=== PATIENT | female | born 1965 | race African-American/Black ===

== ENCOUNTER 2020-12-27 11:05 | Outpatient (REF) | payer OTHER, SELFPAY ==
[2020-12-27 14:24] LABS: Estimated Average Glucose 148 mg/dL; Hemoglobin A1c % 6.8 %
[2020-12-27 14:28] LABS: Glucose Urine UA NEG (NEG); Leukocyte Esterase Urine 1+ (NEG); Nitrite Urine NEG (NEG); PH 5.5 (5.0-8.0); Specific Gravity - Urine >= 1.030 (1.005-1.025); Urine Blood NEG (NEG); Urine Ketones NEG (NEG); Urine Protein NEG (NEG-TRACE)
[2020-12-27 14:31] LABS: Alanine Aminotransferase 24 U/L (0-31); Albumin Level 4.1 g/dL (3.5-5.0); Alkaline Phosphatase 93 U/L (39-117); Anion Gap 10 (12-20); Aspartate Amino Transferase 26 U/L (5-31); Bilirubin Total 0.4 mg/dL (0.0-1.0); Blood Urea Nitrogen 11 mg/dL (9-16); Calcium 8.8 mg/dL (8.4-10.2); Carbon Dioxide 30 mmol/L (22-29); Chloride 107 mmol/L (96-108); Cholesterol 161 mg/dL; Estimated Glomerular Filt Rate > 60; Glucose Fasting 92 mg/dL (60-99); HDL Cholesterol 52 mg/dL; LDL Cholesterol Calculated 98 mg/dl; Potassium 5.3 mmol/L (3.3-5.1); Sodium 142 mmol/L (135-145); Total Protein 7.1 g/dL (6.5-8.0); Triglycerides 56 mg/dL
[2020-12-27 14:34] LABS: Creatinine Urine 219.37 mg/dL; Microalbum/Creatinine Ratio Ur 5.9 ug/mg cr
[2020-12-27 14:42] LABS: Appearance Urine CLOUDY; Color Urine YELLOW
[2020-12-27 15:07] LABS: Bacteria Urine 2+ /LPF; Mucus Urine 2+ /LPF; Squamous Epithelial Cell Urine 2+ /LPF
== END 2020-12-27 11:06 | disposition home or self-care (01) ==
LOC: HO.HMGCLDS 11:05
PROVIDERS: PCP Internal Medicine; Visit Provider Internal Medicine
DX: I10 Essential (primary) hypertension (principal); E11.9 Type 2 diabetes mellitus without complications; J45.909 Unspecified asthma, uncomplicated; R10.9 Unspecified abdominal pain
CPT/HCPCS: 36415; 80053; 80061; 81001; 82043; 83036

== ENCOUNTER 2021-01-09 07:45 | Outpatient (REF) | payer OTHER, SELFPAY ==
--- NOTE | ~2021-01-09 | US_ITS ---
EXAMINATION: US ABDOMEN COMPLETE CLINICAL INFORMATION: Unspecified abdominal pain. COMPARISON: None TECHNIQUE: Real-time imaging of the abdominal viscera. FINDINGS: PANCREAS: Normal. ABDOMINAL AORTA: The proximal, mid, and distal segments are normal in caliber. INFERIOR VENA CAVA: Visualized portions are normal. LIVER: The liver is normal in size. The liver contour is normal. There is diffuse increased liver echogenicity. No focal hepatic lesion. There is no intrahepatic biliary duct dilatation seen. GALLBLADDER: Normal. The gallbladder is physiologically distended without evidence of stones, sludge, polyps, wall thickening or pericholecystic fluid. COMMON BILE DUCT: Normal in caliber measuring 0.33 cm in diameter. RIGHT KIDNEY: Normal. No hydronephrosis. No renal calculi or focal parenchymal lesions. The kidney measures 10.6 cm in maximum dimension. LEFT KIDNEY: Normal. No hydronephrosis. No renal calculi or focal parenchymal lesions. The kidney measures 9.5 cm in maximum dimension. SPLEEN: Normal. The spleen measures 8.3 cm in maximum dimension. FREE FLUID: None. US/US abdomen complete IMPRESSION: Diffuse hepatic steatosis. No focal lesion seen.
== END 2021-01-09 07:46 | disposition home or self-care (01) ==
LOC: HO.US 07:45
PROVIDERS: PCP Internal Medicine; Visit Provider Internal Medicine
DX: R10.9 Unspecified abdominal pain (principal); E11.9 Type 2 diabetes mellitus without complications; I10 Essential (primary) hypertension; J45.909 Unspecified asthma, uncomplicated
CPT/HCPCS: 76700

== ENCOUNTER 2021-01-15 12:23 | Observation (INO) | payer OTHER, SELFPAY ==
[2021-01-15] VITALS (7 sets, daily range): BP systolic 115–139; BP diastolic 55–84; PULSE 73–95; RESP 15–16; TEMP 36.9; O2SAT 96–99; BMI 28.8
--- NOTE | ~2021-01-15 | XR_ITS ---
EXAMINATION: XR CHEST CLINICAL INFORMATION: Chest pain. Hemoptysis. COMPARISON: None TECHNIQUE: Frontal view of the chest was obtained. FINDINGS: The lungs are clear. The cardiomediastinal silhouette is normal in size. There is no pleural effusion or pneumothorax. No acute osseous abnormality. XR/XR chest 1V IMPRESSION: No acute cardiopulmonary findings.
--- NOTE | ~2021-01-15 | CT_ITS ---
EXAMINATION: CT ANGIOGRAM HEAD CT ANGIOGRAM NECK CLINICAL INFORMATION: Left-sided weakness. Confusion. Off balance. COMPARISON: None available. TECHNIQUE: Initial noncontrast field technical assistant imaging of the head and neck was performed. Noncontrast head CT was also performed. Test bolus sequences followed by intravenous administration 100 mL of Omnipaque 350. Helical imaging was performed in the axial plane from the aortic arch to the skull vertex. Delayed postcontrast imaging of the head was also performed. The data was processed at the manufacturing technologist's workstation for generation of MIP sequences. Angled MIPs and volume rendered reformatted images were also generated at an offline 3D workstation. Stenoses are assessed in accordance with NASCET criteria unless otherwise indicated. This CT examination was performed using dose optimization techniques as appropriate, variously including the following: *Automated exposure control. *Adjustment of mA and/or kV according to patient size (this includes techniques or standardized protocols for targeted exams where dose is matched to indication/reason for exam; i.e. extremities or head). *Use of iterative reconstruction technique. DLP: 3068 mGy-cm FINDINGS: CT Head: There is no evidence of acute intracranial hemorrhage or edematous territorial infarction. There is no abnormal attenuation within the brain parenchyma. Lang-white matter differentiation is preserved. The ventricles are normal in size and configuration. No evidence for obstructive hydrocephalus. No abnormal mass effect or midline shift. No extra-axial fluid collections. No pathologic intra-axial enhancement or regional oligemia. No acute soft tissue or osseous abnormalities. Mild mucosal thickening of the paranasal sinuses. The mastoid air cells and middle ear cavities are clear. CT Neck: The thyroid gland and remaining cervical soft tissues are within normal limits. Instrumented anterior fusion of C3-C6. No evidence of hardware failure. Anterior bridging osteophytosis of C2-C3 and C6-C7. 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 Associated moderate narrowing of the foramen magnum. The spinal canal is also congenitally narrowed from C2-C7. CT Upper Chest: The visualized lung apices and upper mediastinum are within normal limits. Neck CTA: Aortic Arch: Normal contour and caliber. Two vessel branching pattern of the arch with left common carotid artery arising from the brachiocephalic trunk. Great Vessel Origins: No significant stenosis of the branch origins. Right Common Carotid Artery: Normal opacification without focal stenosis or occlusion. Cervical Right Internal Carotid Artery: Normal opacification without focal stenosis or occlusion. Left Common Carotid Artery: Normal opacification without focal stenosis or occlusion. Cervical Left Internal Carotid Artery: Normal opacification without focal stenosis or occlusion. Cervical Right Vertebral Artery: Co-dominant. Normal opacification without focal stenosis or occlusion. Cervical Left Vertebral Artery: Co-dominant. Normal opacification without focal stenosis or occlusion. Brain CTA: Intracranial Internal Carotid Arteries: Normal contrast opacification of the petrous, cavernous, paraophthalmic, and supraclinoid segments of the internal carotid arteries without focal stenosis. Right Anterior Cerebral Artery: Normal A1 segment. Normal opacification of the distal segments of the [place]. Left Anterior Cerebral Artery: Normal A1 segment. Normal opacification of the distal segments of the [place]. Anterior Communicating Artery: Normal. Right Middle Cerebral Artery: Normal opacification of the M1 segment of the MCA without focal stenosis or occlusion. Normal arborization of the distal segments. Left Middle Cerebral Artery: Normal opacification of the M1 segment of the MCA without focal stenosis or occlusion. Normal arborization of the distal segments. Right Vertebral Artery: Normal opacification of the V4 segment. The posterior inferior cerebellar artery is not well opacified; however, there is no CT evidence of acute occlusion. Left Vertebral Artery: Normal opacification of the V4 segment. The posterior inferior cerebellar artery is not well opacified; however, there is no CT evidence of acute occlusion. Basilar Artery: Normal opacification without focal stenosis or occlusion. Normal appearance of the proximal superior cerebellar arteries. Right Posterior Cerebral Artery: Normal P1 segment. Normal opacification of the distal segments of the BOARD ATTENDANT. Left Posterior Cerebral Artery: Normal P1 segment. Normal opacification of the distal segments of the BOARD ATTENDANT. Normal opacification of the superior sagittal, straight, transverse, and sigmoid sinuses. CT/CT angio head neck IMPRESSION: 1. No evidence of acute intracranial hemorrhage or edematous territorial infarction. 2. CTA of the head and neck without proximal occlusion or flow-limiting stenosis. 3. Instrumented anterior fusion of C2-C6. 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 This critical result was discussed with JOCELYN Simpson at 17:43 on 01/15/2021 and it was ascertained that the content and urgency of the report was understood at the time of direct communication.
--- NOTE | ~2021-01-15 | CT_ITS ---
EXAMINATION: CT ANGIOGRAM CHEST CLINICAL INFORMATION: Left-sided weakness, confusion, tremulous, off balance. Assess for thoracic dissection. COMPARISON: Chest radiograph 01/15/2021. TECHNIQUE: Multiple axial images were obtained through the chest after the administration of 100 mL of Omnipaque 350 intravenous contrast. Extensive vascular post-processing including two-dimensional and three-dimensional reformatted images were created and reviewed on an independent workstation. CTA chest head and neck is also performed, described in separate report This CT examination was performed using dose optimization techniques as appropriate, variously including the following: *Automated exposure control *Adjustment of mA and/or kV according to patient size (this includes techniques or standardized protocols for targeted exams where dose is matched to indication/reason for exam; i.e. extremities or head) *Use of iterative reconstruction technique DLP: 497 mGy-cm FINDINGS: LUNGS: There are low lung volumes. There is no pneumothorax, lobar or segmental airspace consolidation, or geographic groundglass opacities. No mass. MEDIASTINUM: The thoracic aorta is normal in caliber. There is no aneurysmal enlargement or dissection. No thoracic wall thickening. 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 No pericardial effusion. No hilar or mediastinal mass or mediastinal hematoma. PLEURA: There is no pleural effusion. No pleural mass or thickening. AXILLA: No lymphadenopathy. UPPER ABDOMEN: Unremarkable OSSEOUS STRUCTURES: Unremarkable. CT/CT angio chest IMPRESSION: 1. No thoracic aortic enlargement or dissection. 2. No pneumothorax, airspace consolidation, or effusion. 3. CTA head neck described in separate report.
--- NOTE | 2021-01-15 12:48 | PC.NURSE ---
pt ambulatory with steady gait and one stand by assist to bathroom, void.
--- NOTE | 2021-01-15 12:59 | ECG_ITS ---
Test Reason : CHEST PAIN Blood Pressure : / mmHG Vent. Rate : 077 BPM Atrial Rate : 077 BPM P-R Int : 146 ms QRS Dur : 078 ms QT Int : 392 ms P-R-T Axes : 036 002 -19 degrees QTc Int : 443 ms Normal sinus rhythm with sinus arrhythmia Nonspecific T wave abnormality Abnormal ECG No previous ECGs available Referred By: Swapna Arzate Electronically Signed By:Alexsander Guerrero
[2021-01-15 13:59] LABS: Basophils Absolute Auto 0.1 X10*3/uL (0.0-0.2); Basophils Percent Auto 0.9 % (0-2); Eosinophils Absolute Auto 0.1 X10*3/uL (0.0-0.4); Eosinophils Percent Auto 2.2 % (0-4); Hematocrit 38.7 % (37-47); Hemoglobin 13.3 g/dl (12.0-16.0); Imm Gran Abs Auto 0.01 X10*3/uL (0.00-0.03); Imm Gran Pct Auto 0.2 % (0.0-0.4); Lymphocytes Absolute Auto 3.8 X10*3/uL (1.2-4.9); Lymphocytes Percent Auto 65.3 % (20-40); MANUAL DIFF FLAG SCAN; Mean Corpuscular HGB Conc 34.4 g/dl (31.0-35.0); Mean Corpuscular Hemoglobin 26.3 pg (27.0-33.0); Mean Corpuscular Volume 76.6 fL (80-98); Mean Platelet Volume 9.1 fL (9.4-12.3); Monocytes Absolute Auto 0.4 X10*3/uL (0.1-1.2); Monocytes Percent Auto 6.5 % (2-11); Neutrophils Absolute Auto 1.5 X10*3/uL (2.0-8.3); Neutrophils Percent Auto 24.9 % (45-73); Platelet Count 230 X10*3/uL (160-400); Red Blood Count 5.05 X10*6/uL (4.20-5.50); Red Cell Distribution Width 15.1 % (11.0-16.0); SCAN SMEAR FLAG 1; White Blood Count 5.8 X10*3/uL (4.8-10.8)
--- NOTE | 2021-01-15 14:19 | ED_ITS ---
HPI - Chest Pain General Chief Complaint: Chest Pain <JOCELYN Simpson - Last Filed: 01/15/21 18:06> Stated Complaint: DIFF BREATHING ON/OFF SINCE THURSDAY <JOCELYN Simpson - Last Filed: 01/15/21 18:06> Time Seen by Provider: 01/15/21 12:36 <JOCELYN Simpson - Last Filed: 01/15/21 18:06> Source: patient and EMS <JOCELYN Simpson - Last Filed: 01/15/21 18:06> Mode of arrival: EMS <JOCELYN Simpson - Last Filed: 01/15/21 18:06> History of Present Illness HPI narrative: 55-year-old female with a past medical history of diabetes, hypertension, asthma, hyperlipidemia, BIBA from urgent care complaining of substernal chest pain radiating to back, SOB, cough with hemoptysis x3 days. Also reports left- sided weakness with headache, increased confusion, and feeling off balance x 2-3 days. Per UC patient with ataxic gait, chills, abdominal pain, nausea/vomiting, dysuria/hematuria, fall/head trauma. Admits this is not her baseline. Takes ASA, denies other anticoagulation <JOCELYN Simpson - Last Filed: 01/15/21 18:06> Related Data Home Medications: Home Medications Medication Instructions Recorded Confirmed acetaminophen 650 mg PO TID PRN 01/15/21 01/22/21 albuterol sulfate 1 amp INHALATION Q4H PRN 01/15/21 01/22/21 bupropion HCl 150 mg 24 hr tablet, 150 mg PO QAM 01/15/21 01/22/21 extended release empagliflozin 10 mg tablet 10 mg PO DAILY@0730 01/15/21 01/22/21 inhalational spacing device #1 ea 01/15/21 01/22/21 Previous Rx's Medication Instructions Recorded lancets 28 gauge #100 ea 07/24/20 blood sugar diagnostic #100 ea 07/30/20 aspirin 81 mg tablet,delayed 81 mg PO DAILY #90 tab 11/29/20 release albuterol sulfate 90 mcg/actuation 2 puff PO QID PRN #8.5 g 12/19/20 aerosol inhaler amlodipine 10 mg tablet 10 mg PO DAILY #90 tab 12/19/20 atorvastatin 40 mg tablet 40 mg PO DAILY #90 tab 12/19/20 budesonide-formoterol HFA 80 2 puff PO BID #10.2 g 12/19/20 mcg-4.5 mcg/actuation aerosol inhaler lisinopril 2.5 mg tablet 2.5 mg PO DAILY #90 tab 12/19/20 metformin 1,000 mg tablet 1,000 mg PO BID #180 tab 12/19/20 metoprolol succinate 25 mg 25 mg PO DAILY #90 tab 12/19/20 tablet,extended release 24 hr compr.stocking,knee,long,large #12 ea 01/22/21 miscellaneous medical supply 1 ea MISCELLANEOUS .qd #1 ea 01/22/21 <JOCELYN Simpson Last Filed: 01/15/21 18:06> Allergies/Adverse Reactions: Allergies Allergy/AdvReac Type Severity Reaction Status Date / Time No Known Allergies Allergy Verified 01/22/21 13:42 <JOECLYN Simpson Last Filed: 01/15/21 18:06> Review of Systems Review of Systems: Constitutional: No Fever, No Chills, No Night Sweats, + Fatigue, + Malaise ENT/Mouth: No Ear Pain, No Nasal Congestion, No Sinus Pain, No Hoarseness, No sore throat, No Rhinorrhea Eyes: No Eye Pain, No Swelling, No Redness, No Vision Changes Cardiovascular: + Chest Pain, + SOB, + hemoptysis, No Edema, + Palpitations Respiratory: + Cough, No Sputum, No Dyspnea Gastrointestinal: No Nausea, No Vomiting, No Diarrhea, No Constipation, No Abdominal pain Genitourinary: No Dysuria, No Urinary Frequency, No Hematuria, No Flank Pain Musculoskeletal: No joint pain, No Myalgias, No Joint Swelling Skin: No Skin Lesions, No rash Neuro: + Weakness, +confusion, No Numbness, No Paresthesias, No Loss of Consciousness, + off balance, + Headache <JOCELYN Simpson Last Filed: 01/15/21 18:06> Yes all other systems are reviewed and are negative <JOCELYN Simpson Last Filed: 01/15/21 18:06> Neurologic: Reports confusion <JOCELYN Simpson Last Filed: 01/15/21 18:06> Psychiatric: Psychiatric: Reports confusion <JOCELYN Simpson - Last Filed: 01/15/21 18:06> [facility] Past Medical History Attestation statement: The following information was validated with the patient. <JOCELYN Simpson - Last Filed: 01/15/21 18:06> Medical History: Medical History Abdominal pain Dysuria H/O mixed hyperlipidemia Hypertension Ingrown toenail Moderate asthma without complication Type 2 diabetes mellitus <JOCELYN Simpson - Last Filed: 01/15/21 18:06> Surgical History: Surgical History H/O colonoscopy History of lumbosacral spine surgery Hx of cervical spine surgery <JOCELYN Simpson - Last Filed: 01/15/21 18:06> Social History Social History: Social History Household Members: Family Housing: House Alcohol intake: unknown Smoking Status: Never smoker service: No Current occupational status: employed <JOCELYN Simpson - Last Filed: 01/15/21 18:06> Physical Exam Vital Signs: Vital Signs: Last Vital Signs Temp 96.8 F 01/16/21 11:29 Pulse 81 01/16/21 11:29 Resp 18 01/16/21 11:29 BP 115/69 01/16/21 11:29 Pulse Ox 94 01/16/21 11:29 Body Mass Index 28.8 <JOCELYN Simpson - Last Filed: 01/15/21 18:06> Vital Signs: Last Vital Signs Temp 96.8 F 01/16/21 11:29 Pulse 81 01/16/21 11:29 Resp 18 01/16/21 11:29 BP 115/69 01/16/21 11:29 Pulse Ox 94 01/16/21 11:29 Body Mass Index 28.8 <Arik Dyer MD - Last Filed: 01/23/21 17:09> Const: General: cooperative, healthy appearing and confusion <JOCELYN Simpson - Last Filed: 01/15/21 18:06> Orientation/consciousness: oriented to person, oriented to place and confusion <Swapna Arzate NM - Last Filed: 01/15/21 18:06> HENMT: Head: Yes normal to inspection and Yes atraumatic <Swapna Arzate NM - Last Filed: 01/15/21 18:06> Ears: hearing grossly normal bilaterally <Swapna Arzate NM - Last Filed: 01/15/21 18:06> General nose exam: Normal external nose present <Swapna Arzate NM - Last Filed: 01/15/21 18:06> Face and sinus: Yes normal facial exam <Swapna Arzate NM - Last Filed: 01/15/21 18:06> Throat: Yes posterior oropharynx normal <Swapna Arzate NM - Last Filed: 01/15/21 18:06> Eyes: General: appearance normal, both eyes and all related structures <Swapna Arzate NM - Last Filed: 01/15/21 18:06> Pupils: Equal, round and reactive pupils present <Swapna Arzate NM - Last Filed: 01/15/21 18:06> EOM: EOMs intact bilaterally <Swapna Arzate NM - Last Filed: 01/15/21 18:06> Neck: Neck: Yes normal visual inspection and Yes no meningeal signs <Swapna Arzate NM - Last Filed: 01/15/21 18:06> Resp: Effort & Inspection: normal respiratory effort <Swapna Arzate [facility] Last Filed: 01/15/21 18:06> Auscultation: clear to auscultation bilaterally, no rales, no rhonchi and no wheezes <Swapna Arzate NM - Last Filed: 01/15/21 18:06> Cardio: Rate: regular rate <Swapna Arzate [facility] Last Filed: 01/15/21 18:06> Heart sounds: S1 normal heart sound present and S2 normal heart sound present <Swapna Arzate NM - Last Filed: 01/15/21 18:06> GI: Inspection: Yes normal to inspection <Swapna Arzate [facility] Last Filed: 01/15/21 18:06> Palpation (GI): Soft to palpation, nontender, no guarding and not rigid <Swapna Arzate NM - Last Filed: 01/15/21 18:06> Skin: Rashes: no rashes <JOCELYN Simpson - Last Filed: 01/15/21 18:06> Wounds: no wounds <JOCELYN Simpson - Last Filed: 01/15/21 18:06> Neuro: Other: Confused, very tremulous on exam. Slightly LUE weakness and +LLE weakness noted. Gait steady no ataxic. [id number] not intact <JOCELYN Simpson - Last Filed: 01/15/21 18:06> General: oriented to person, oriented to place, tone normal, moves all extremities, no meningeal signs, CN's II-XI intact bilaterally and confusion <JOCELYN Simpson - Last Filed: 01/15/21 18:06> Cranial nerves: Yes Equal, round and reactive pupils present <JOCELYN Simpson Last Filed: 01/15/21 18:06> Motor exam (neuro): Pronator motor function not present <JOCELYN Simpson Last Filed: 01/15/21 18:06> Extrem: General: Yes normal to inspection <JOCELYN Simpson - Last Filed: 01/15/21 18:06> Course Course Course Narrative: XR chest 1V IMPRESSION: No acute cardiopulmonary findings -no leukocytosis, labs otherwise unremarkable including troponin CT angio chest IMPRESSION: 1. No thoracic aortic enlargement or dissection. 2. No pneumothorax, airspace consolidation, or effusion. 3. CTA head neck described in separate report. -[id number]--patient admitted for further management CT angio head neck IMPRESSION: 1. No evidence of acute intracranial hemorrhage or edematous territorial infarction. 2. CTA of the head and neck without proximal occlusion or flow-limiting stenosis. 3. Instrumented anterior fusion of C2-C6. 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 <JOCELYN Simpson - Last Filed: 01/15/21 18:06> I have reviewed the chart <Arik Dyer MD - Last Filed: 01/23/21 17:09> MDM - Chest Pain MDM Narrative Medical decision making narrative: 55-year-old female with a past medical history of diabetes, hypertension, asthma, hyperlipidemia, BIBA from urgent care complaining of substernal chest pain radiating to back, SOB, cough with hemoptysis x3 days. Also reports left- sided weakness with headache, increased confusion, and feeling off balance x 2-3 days. On exam VSS, NAD, physical exam as above. Concern for subacute CVA vs dissection vs ACS vs electrolyte abnormalities. PE on differential but lower with other COVID founding symptoms. Lower concern for meningitis/encephalitis or CVT Plan: EKG, labs, UA, CXR, CTA head/neck, CTA chest, anticipated admission <JOCELYN Simpson - Last Filed: 01/15/21 18:06> Medical Records Data Attestation: I reviewed the patient's medical records. <JOCELYN Simpson - Last Filed: 01/15/21 18:06> Lab Data Attestation: I reviewed the patient's lab results. <JOCELYN Simpson - Last Filed: 01/15/21 18:06> Result diagrams: : 01/16/21 04:14 01/16/21 04:14 <JOCELYN Simpson - Last Filed: 01/15/21 18:06> Labs: Lab Results 01/15/21 01/15/21 01/15/21 Range/Units 13:39 13:49 13:50 WBC 5.8 (4.8-10.8) X10*3/uL RBC 5.05 (4.20-5.50) X10*6/uL Hgb 13.3 (12.0-16.0) g/dl Hct 38.7 (37-47) % MCV 76.6 L (80-98) fL MCH 26.3 L (27.0-33.0) pg MCHC 34.4 (31.0-35.0) g/dl RDW 15.1 (11.0-16.0) % Plt Count 230 (160-400) X10*3/uL MPV 9.1 L (9.4-12.3) fL Immature Gran % (Auto) 0.2 (0.0-0.4) % Neut % (Auto) 24.9 L (45-73) % Lymph % (Auto) 65.3 H (20-40) % [place] % (Auto) 6.5 (2-11) % Eos % (Auto) 2.2 (0-4) % Baso % (Auto) 0.9 (0-2) % Lymph # (Auto) 3.8 (1.2-4.9) X10*3/uL [place] # (Auto) 0.4 (0.1-1.2) X10*3/uL Eos # (Auto) 0.1 (0.0-0.4) X10*3/uL Baso # (Auto) 0.1 (0.0-0.2) X10*3/uL Abs Immat Gran (auto) 0.01 (0.00-0.03) X10*3/uL Absolute Neuts (auto) 1.5 L (2.0-8.3) X10*3/uL Absolute Nucleated RBC 0.000 (0.0-0.012) X10*3/uL Nucleated RBC % (auto) 0.0 (0.0-0.2) /100WBC Smear Tech's Comments VERIFIED PT (10.8-13.0) SEC INR (0.9-1.1) APTT (24.1-38.0) SEC Sodium (135-145) mmol/L Potassium (3.3-5.1) mmol/L Chloride (96-108) mmol/L Carbon Dioxide (22-29) mmol/L Anion Gap (12-20) BUN (9-16) mg/dL Creatinine (0.5-1.4) mg/dL Estim Creat Clear Calc Estimated GFR Random Glucose (60-115) mg/dL Calcium (8.4-10.2) mg/dL Magnesium (1.6-2.6) mg/dL Total Bilirubin (0.0-1.0) mg/dL Direct Bilirubin (0.0-0.5) mg/dL AST (5-31) U/L ALT (0-31) U/L Alkaline Phosphatase (39-117) U/L Ammonia (13-55) umol/L Troponin I High Sens (<3.5-17.0) ng/L B-Natriuretic Peptide 18 (<100) pg/mL Total Protein (6.5-8.0) g/dL Albumin (3.5-5.0) g/dL Lipase (8-78) U/L Urine Color Urine Appearance Urine pH (5.0-8.0) Ur Specific [place] (1.005-1.025) Urine Protein (NEG-TRACE) MG/DL Urine Glucose (UA) (NEG) MG/DL Urine Ketones (NEG) MG/DL Urine Blood (NEG) Urine Nitrite (NEG) Ur Leukocyte Esterase (NEG) Urine Opiates Screen (Not Detect) Ur Barbiturates Screen (Not Detect) Ur Phencyclidine Scrn (Not Detect) Ur Amphetamines Screen (Not Detect) U Benzodiazepines Scrn (Not Detect) Urine Cocaine Screen (Not Detect) U Marijuana (THC) Screen (Not Detect) Coronavirus (PCR) NEGATIVE (Negative) Influenza Type A (PCR) NEGATIVE (Negative) Influenza Type B (PCR) NEGATIVE (Negative) RSV RNA Qual (PCR) NEGATIVE (Negative) 01/15/21 01/15/21 01/15/21 Range/Units 13:50 13:50 13:50 WBC (4.8-10.8) X10*3/uL RBC (4.20-5.50) X10*6/uL Hgb (12.0-16.0) g/dl Hct (37-47) % MCV (80-98) fL MCH (27.0-33.0) pg MCHC (31.0-35.0) g/dl RDW (11.0-16.0) % Plt Count (160-400) X10*3/uL MPV (9.4-12.3) fL Immature Gran % (Auto) (0.0-0.4) % Neut % (Auto) (45-73) % Lymph % (Auto) (20-40) % [place] % (Auto) (2-11) % Eos % (Auto) (0-4) % Baso % (Auto) (0-2) % Lymph # (Auto) (1.2-4.9) X10*3/uL [place] # (Auto) (0.1-1.2) X10*3/uL Eos # (Auto) (0.0-0.4) X10*3/uL Baso # (Auto) (0.0-0.2) X10*3/uL Abs Immat Gran (auto) (0.00-0.03) X10*3/uL Absolute Neuts (auto) (2.0-8.3) X10*3/uL Absolute Nucleated RBC (0.0-0.012) X10*3/uL Nucleated RBC % (auto) (0.0-0.2) /100WBC Smear Tech's Comments PT (10.8-13.0) SEC INR (0.9-1.1) APTT (24.1-38.0) SEC Sodium 144 (135-145) mmol/L Potassium 4.2 D (3.3-5.1) mmol/L Chloride 108 (96-108) mmol/L Carbon Dioxide 27 (22-29) mmol/L Anion Gap 13 (12-20) BUN 9 (9-16) mg/dL Creatinine 0.72 (0.5-1.4) mg/dL Estim Creat Clear Calc 100.2 Estimated GFR > 60 Random Glucose 94 (60-115) mg/dL Calcium 8.7 (8.4-10.2) mg/dL Magnesium 2.4 (1.6-2.6) mg/dL Total Bilirubin 0.6 (0.0-1.0) mg/dL Direct Bilirubin 0.2 (0.0-0.5) mg/dL AST 23 (5-31) U/L ALT 19 (0-31) U/L Alkaline Phosphatase 90 (39-117) U/L Ammonia 30 (13-55) umol/L Troponin I High Sens < 3.5 (<3.5-17.0) ng/L B-Natriuretic Peptide (<100) pg/mL Total Protein 7.0 (6.5-8.0) g/dL Albumin 4.1 (3.5-5.0) g/dL Lipase (8-78) U/L Urine Color Urine Appearance Urine pH (5.0-8.0) Ur Specific [place] (1.005-1.025) Urine Protein (NEG-TRACE) MG/DL Urine Glucose (UA) (NEG) MG/DL Urine Ketones (NEG) MG/DL Urine Blood (NEG) Urine Nitrite (NEG) Ur Leukocyte Esterase (NEG) Urine Opiates Screen (Not Detect) Ur Barbiturates Screen (Not Detect) Ur Phencyclidine Scrn (Not Detect) Ur Amphetamines Screen (Not Detect) U Benzodiazepines Scrn (Not Detect) Urine Cocaine Screen (Not Detect) U Marijuana (THC) Screen (Not Detect) Coronavirus (PCR) (Negative) Influenza Type A (PCR) (Negative) Influenza Type B (PCR) (Negative) RSV RNA Qual (PCR) (Negative) 01/15/21 01/15/21 01/15/21 Range/Units 13:50 13:50 16:26 WBC (4.8-10.8) X10*3/uL RBC (4.20-5.50) X10*6/uL Hgb (12.0-16.0) g/dl Hct (37-47) % MCV (80-98) fL MCH (27.0-33.0) pg MCHC (31.0-35.0) g/dl RDW (11.0-16.0) % Plt Count (160-400) X10*3/uL MPV (9.4-12.3) fL Immature Gran % (Auto) (0.0-0.4) % Neut % (Auto) (45-73) % Lymph % (Auto) (20-40) % [place] % (Auto) (2-11) % Eos % (Auto) (0-4) % Baso % (Auto) (0-2) % Lymph # (Auto) (1.2-4.9) X10*3/uL [place] # (Auto) (0.1-1.2) X10*3/uL Eos # (Auto) (0.0-0.4) X10*3/uL Baso # (Auto) (0.0-0.2) X10*3/uL Abs Immat Gran (auto) (0.00-0.03) X10*3/uL Absolute Neuts (auto) (2.0-8.3) X10*3/uL Absolute Nucleated RBC (0.0-0.012) X10*3/uL Nucleated RBC % (auto) (0.0-0.2) /100WBC Smear Tech's Comments PT 12.7 (10.8-13.0) SEC INR 1.1 (0.9-1.1) APTT 36.9 (24.1-38.0) SEC Sodium (135-145) mmol/L Potassium (3.3-5.1) mmol/L Chloride (96-108) mmol/L Carbon Dioxide (22-29) mmol/L Anion Gap (12-20) BUN (9-16) mg/dL Creatinine (0.5-1.4) mg/dL Estim Creat Clear Calc Estimated GFR Random Glucose (60-115) mg/dL Calcium (8.4-10.2) mg/dL Magnesium (1.6-2.6) mg/dL Total Bilirubin (0.0-1.0) mg/dL Direct Bilirubin (0.0-0.5) mg/dL AST (5-31) U/L ALT (0-31) U/L Alkaline Phosphatase (39-117) U/L Ammonia (13-55) umol/L Troponin I High Sens (<3.5-17.0) ng/L B-Natriuretic Peptide (<100) pg/mL Total Protein (6.5-8.0) g/dL Albumin (3.5-5.0) g/dL Lipase 16 (8-78) U/L Urine Color YELLOW Urine Appearance CLEAR Urine pH 7.0 (5.0-8.0) Ur Specific [place] <= 1.005 (1.005-1.025) Urine Protein NEG (NEG-TRACE) MG/DL Urine Glucose (UA) NEG (NEG) MG/DL Urine Ketones NEG (NEG) MG/DL Urine Blood NEG (NEG) Urine Nitrite NEG (NEG) Ur Leukocyte Esterase NEG (NEG) Urine Opiates Screen (Not Detect) Ur Barbiturates Screen (Not Detect) Ur Phencyclidine Scrn (Not Detect) Ur Amphetamines Screen (Not Detect) U Benzodiazepines Scrn (Not Detect) Urine Cocaine Screen (Not Detect) U Marijuana (THC) Screen (Not Detect) Coronavirus (PCR) (Negative) Influenza Type A (PCR) (Negative) Influenza Type B (PCR) (Negative) RSV RNA Qual (PCR) (Negative) 01/15/21 Range/Units 16:26 WBC (4.8-10.8) X10*3/uL RBC (4.20-5.50) X10*6/uL Hgb (12.0-16.0) g/dl Hct (37-47) % MCV (80-98) fL MCH (27.0-33.0) pg MCHC (31.0-35.0) g/dl RDW (11.0-16.0) % Plt Count (160-400) X10*3/uL MPV (9.4-12.3) fL Immature Gran % (Auto) (0.0-0.4) % Neut % (Auto) (45-73) % Lymph % (Auto) (20-40) % [place] % (Auto) (2-11) % Eos % (Auto) (0-4) % Baso % (Auto) (0-2) % Lymph # (Auto) (1.2-4.9) X10*3/uL [place] # (Auto) (0.1-1.2) X10*3/uL Eos # (Auto) (0.0-0.4) X10*3/uL Baso # (Auto) (0.0-0.2) X10*3/uL Abs Immat Gran (auto) (0.00-0.03) X10*3/uL Absolute Neuts (auto) (2.0-8.3) X10*3/uL Absolute Nucleated RBC (0.0-0.012) X10*3/uL Nucleated RBC % (auto) (0.0-0.2) /100WBC Smear Tech's Comments PT (10.8-13.0) SEC INR (0.9-1.1) APTT (24.1-38.0) SEC Sodium (135-145) mmol/L Potassium (3.3-5.1) mmol/L Chloride (96-108) mmol/L Carbon Dioxide (22-29) mmol/L Anion Gap (12-20) BUN (9-16) mg/dL Creatinine (0.5-1.4) mg/dL Estim Creat Clear Calc Estimated GFR Random Glucose (60-115) mg/dL Calcium (8.4-10.2) mg/dL Magnesium (1.6-2.6) mg/dL Total Bilirubin (0.0-1.0) mg/dL Direct Bilirubin (0.0-0.5) mg/dL AST (5-31) U/L ALT (0-31) U/L Alkaline Phosphatase (39-117) U/L Ammonia (13-55) umol/L Troponin I High Sens (<3.5-17.0) ng/L B-Natriuretic Peptide (<100) pg/mL Total Protein (6.5-8.0) g/dL Albumin (3.5-5.0) g/dL Lipase (8-78) U/L Urine Color Urine Appearance Urine pH (5.0-8.0) Ur Specific [place] (1.005-1.025) Urine Protein (NEG-TRACE) MG/DL Urine Glucose (UA) (NEG) MG/DL Urine Ketones (NEG) MG/DL Urine Blood (NEG) Urine Nitrite (NEG) Ur Leukocyte Esterase (NEG) Urine Opiates Screen Not Detected (Not Detect) Ur Barbiturates Screen Not Detected (Not Detect) Ur Phencyclidine Scrn Not Detected (Not Detect) Ur Amphetamines Screen Not Detected (Not Detect) U Benzodiazepines Scrn Not Detected (Not Detect) Urine Cocaine Screen Not Detected (Not Detect) U Marijuana (THC) Screen Not Detected (Not Detect) Coronavirus (PCR) (Negative) Influenza Type A (PCR) (Negative) Influenza Type B (PCR) (Negative) RSV RNA Qual (PCR) (Negative) <JOCELYN Simpson - Last Filed: 01/15/21 18:06> Lab Results 01/15/21 01/15/21 01/15/21 Range/Units 13:39 13:49 13:50 WBC 5.8 (4.8-10.8) X10*3/uL RBC 5.05 (4.20-5.50) X10*6/uL Hgb 13.3 (12.0-16.0) g/dl Hct 38.7 (37-47) % MCV 76.6 L (80-98) fL MCH 26.3 L (27.0-33.0) pg MCHC 34.4 (31.0-35.0) g/dl RDW 15.1 (11.0-16.0) % Plt Count 230 (160-400) X10*3/uL MPV 9.1 L (9.4-12.3) fL Immature Gran % (Auto) 0.2 (0.0-0.4) % Neut % (Auto) 24.9 L (45-73) % Lymph % (Auto) 65.3 H (20-40) % [place] % (Auto) 6.5 (2-11) % Eos % (Auto) 2.2 (0-4) % Baso % (Auto) 0.9 (0-2) % Lymph # (Auto) 3.8 (1.2-4.9) X10*3/uL [place] # (Auto) 0.4 (0.1-1.2) X10*3/uL Eos # (Auto) 0.1 (0.0-0.4) X10*3/uL Baso # (Auto) 0.1 (0.0-0.2) X10*3/uL Abs Immat Gran (auto) 0.01 (0.00-0.03) X10*3/uL Absolute Neuts (auto) 1.5 L (2.0-8.3) X10*3/uL Absolute Nucleated RBC 0.000 (0.0-0.012) X10*3/uL Nucleated RBC % (auto) 0.0 (0.0-0.2) /100WBC Smear Tech's Comments VERIFIED PT (10.8-13.0) SEC INR (0.9-1.1) APTT (24.1-38.0) SEC Sodium (135-145) mmol/L Potassium (3.3-5.1) mmol/L Chloride (96-108) mmol/L Carbon Dioxide (22-29) mmol/L Anion Gap (12-20) BUN (9-16) mg/dL Creatinine (0.5-1.4) mg/dL Estim Creat Clear Calc Estimated GFR Random Glucose (60-115) mg/dL Calcium (8.4-10.2) mg/dL Magnesium (1.6-2.6) mg/dL Total Bilirubin (0.0-1.0) mg/dL Direct Bilirubin (0.0-0.5) mg/dL AST (5-31) U/L ALT (0-31) U/L Alkaline Phosphatase (39-117) U/L Ammonia (13-55) umol/L Troponin I High Sens (<3.5-17.0) ng/L B-Natriuretic Peptide 18 (<100) pg/mL Total Protein (6.5-8.0) g/dL Albumin (3.5-5.0) g/dL Lipase (8-78) U/L Urine Color Urine Appearance Urine pH (5.0-8.0) Ur Specific [place] (1.005-1.025) Urine Protein (NEG-TRACE) MG/DL Urine Glucose (UA) (NEG) MG/DL Urine Ketones (NEG) MG/DL Urine Blood (NEG) Urine Nitrite (NEG) Ur Leukocyte Esterase (NEG) Urine Opiates Screen (Not Detect) Ur Barbiturates Screen (Not Detect) Ur Phencyclidine Scrn (Not Detect) Ur Amphetamines Screen (Not Detect) U Benzodiazepines Scrn (Not Detect) Urine Cocaine Screen (Not Detect) U Marijuana (THC) Screen (Not Detect) Coronavirus (PCR) NEGATIVE (Negative) Influenza Type A (PCR) NEGATIVE (Negative) Influenza Type B (PCR) NEGATIVE (Negative) RSV RNA Qual (PCR) NEGATIVE (Negative) 01/15/21 01/15/21 01/15/21 Range/Units 13:50 13:50 13:50 WBC (4.8-10.8) X10*3/uL RBC (4.20-5.50) X10*6/uL Hgb (12.0-16.0) g/dl Hct (37-47) % MCV (80-98) fL MCH (27.0-33.0) pg MCHC (31.0-35.0) g/dl RDW (11.0-16.0) % Plt Count (160-400) X10*3/uL MPV (9.4-12.3) fL Immature Gran % (Auto) (0.0-0.4) % Neut % (Auto) (45-73) % Lymph % (Auto) (20-40) % [place] % (Auto) (2-11) % Eos % (Auto) (0-4) % Baso % (Auto) (0-2) % Lymph # (Auto) (1.2-4.9) X10*3/uL [place] # (Auto) (0.1-1.2) X10*3/uL Eos # (Auto) (0.0-0.4) X10*3/uL Baso # (Auto) (0.0-0.2) X10*3/uL Abs Immat Gran (auto) (0.00-0.03) X10*3/uL Absolute Neuts (auto) (2.0-8.3) X10*3/uL Absolute Nucleated RBC (0.0-0.012) X10*3/uL Nucleated RBC % (auto) (0.0-0.2) /100WBC Smear Tech's Comments PT (10.8-13.0) SEC INR (0.9-1.1) APTT (24.1-38.0) SEC Sodium 144 (135-145) mmol/L Potassium 4.2 D (3.3-5.1) mmol/L Chloride 108 (96-108) mmol/L Carbon Dioxide 27 (22-29) mmol/L Anion Gap 13 (12-20) BUN 9 (9-16) mg/dL Creatinine 0.72 (0.5-1.4) mg/dL Estim Creat Clear Calc 100.2 Estimated GFR > 60 Random Glucose 94 (60-115) mg/dL Calcium 8.7 (8.4-10.2) mg/dL Magnesium 2.4 (1.6-2.6) mg/dL Total Bilirubin 0.6 (0.0-1.0) mg/dL Direct Bilirubin 0.2 (0.0-0.5) mg/dL AST 23 (5-31) U/L ALT 19 (0-31) U/L Alkaline Phosphatase 90 (39-117) U/L Ammonia 30 (13-55) umol/L Troponin I High Sens < 3.5 (<3.5-17.0) ng/L B-Natriuretic Peptide (<100) pg/mL Total Protein 7.0 (6.5-8.0) g/dL Albumin 4.1 (3.5-5.0) g/dL Lipase (8-78) U/L Urine Color Urine Appearance Urine pH (5.0-8.0) Ur Specific [place] (1.005-1.025) Urine Protein (NEG-TRACE) MG/DL Urine Glucose (UA) (NEG) MG/DL Urine Ketones (NEG) MG/DL Urine Blood (NEG) Urine Nitrite (NEG) Ur Leukocyte Esterase (NEG) Urine Opiates Screen (Not Detect) Ur Barbiturates Screen (Not Detect) Ur Phencyclidine Scrn (Not Detect) Ur Amphetamines Screen (Not Detect) U Benzodiazepines Scrn (Not Detect) Urine Cocaine Screen (Not Detect) U Marijuana (THC) Screen (Not Detect) Coronavirus (PCR) (Negative) Influenza Type A (PCR) (Negative) Influenza Type B (PCR) (Negative) RSV RNA Qual (PCR) (Negative) 01/15/21 01/15/21 01/15/21 Range/Units 13:50 13:50 16:26 WBC (4.8-10.8) X10*3/uL RBC (4.20-5.50) X10*6/uL Hgb (12.0-16.0) g/dl Hct (37-47) % MCV (80-98) fL MCH (27.0-33.0) pg MCHC (31.0-35.0) g/dl RDW (11.0-16.0) % Plt Count (160-400) X10*3/uL MPV (9.4-12.3) fL Immature Gran % (Auto) (0.0-0.4) % Neut % (Auto) (45-73) % Lymph % (Auto) (20-40) % [place] % (Auto) (2-11) % Eos % (Auto) (0-4) % Baso % (Auto) (0-2) % Lymph # (Auto) (1.2-4.9) X10*3/uL [place] # (Auto) (0.1-1.2) X10*3/uL Eos # (Auto) (0.0-0.4) X10*3/uL Baso # (Auto) (0.0-0.2) X10*3/uL Abs Immat Gran (auto) (0.00-0.03) X10*3/uL Absolute Neuts (auto) (2.0-8.3) X10*3/uL Absolute Nucleated RBC (0.0-0.012) X10*3/uL Nucleated RBC % (auto) (0.0-0.2) /100WBC Smear Tech's Comments PT 12.7 (10.8-13.0) SEC INR 1.1 (0.9-1.1) APTT 36.9 (24.1-38.0) SEC Sodium (135-145) mmol/L Potassium (3.3-5.1) mmol/L Chloride (96-108) mmol/L Carbon Dioxide (22-29) mmol/L Anion Gap (12-20) BUN (9-16) mg/dL Creatinine (0.5-1.4) mg/dL Estim Creat Clear Calc Estimated GFR Random Glucose (60-115) mg/dL Calcium (8.4-10.2) mg/dL Magnesium (1.6-2.6) mg/dL Total Bilirubin (0.0-1.0) mg/dL Direct Bilirubin (0.0-0.5) mg/dL AST (5-31) U/L ALT (0-31) U/L Alkaline Phosphatase (39-117) U/L Ammonia (13-55) umol/L Troponin I High Sens (<3.5-17.0) ng/L B-Natriuretic Peptide (<100) pg/mL Total Protein (6.5-8.0) g/dL Albumin (3.5-5.0) g/dL Lipase 16 (8-78) U/L Urine Color YELLOW Urine Appearance CLEAR Urine pH 7.0 (5.0-8.0) Ur Specific [place] <= 1.005 (1.005-1.025) Urine Protein NEG (NEG-TRACE) MG/DL Urine Glucose (UA) NEG (NEG) MG/DL Urine Ketones NEG (NEG) MG/DL Urine Blood NEG (NEG) Urine Nitrite NEG (NEG) Ur Leukocyte Esterase NEG (NEG) Urine Opiates Screen (Not Detect) Ur Barbiturates Screen (Not Detect) Ur Phencyclidine Scrn (Not Detect) Ur Amphetamines Screen (Not Detect) U Benzodiazepines Scrn (Not Detect) Urine Cocaine Screen (Not Detect) U Marijuana (THC) Screen (Not Detect) Coronavirus (PCR) (Negative) Influenza Type A (PCR) (Negative) Influenza Type B (PCR) (Negative) RSV RNA Qual (PCR) (Negative) 01/15/21 Range/Units 16:26 WBC (4.8-10.8) X10*3/uL RBC (4.20-5.50) X10*6/uL Hgb (12.0-16.0) g/dl Hct (37-47) % MCV (80-98) fL MCH (27.0-33.0) pg MCHC (31.0-35.0) g/dl RDW (11.0-16.0) % Plt Count (160-400) X10*3/uL MPV (9.4-12.3) fL Immature Gran % (Auto) (0.0-0.4) % Neut % (Auto) (45-73) % Lymph % (Auto) (20-40) % [place] % (Auto) (2-11) % Eos % (Auto) (0-4) % Baso % (Auto) (0-2) % Lymph # (Auto) (1.2-4.9) X10*3/uL [place] # (Auto) (0.1-1.2) X10*3/uL Eos # (Auto) (0.0-0.4) X10*3/uL Baso # (Auto) (0.0-0.2) X10*3/uL Abs Immat Gran (auto) (0.00-0.03) X10*3/uL Absolute Neuts (auto) (2.0-8.3) X10*3/uL Absolute Nucleated RBC (0.0-0.012) X10*3/uL Nucleated RBC % (auto) (0.0-0.2) /100WBC Smear Tech's Comments PT (10.8-13.0) SEC INR (0.9-1.1) APTT (24.1-38.0) SEC Sodium (135-145) mmol/L Potassium (3.3-5.1) mmol/L Chloride (96-108) mmol/L Carbon Dioxide (22-29) mmol/L Anion Gap (12-20) BUN (9-16) mg/dL Creatinine (0.5-1.4) mg/dL Estim Creat Clear Calc Estimated GFR Random Glucose (60-115) mg/dL Calcium (8.4-10.2) mg/dL Magnesium (1.6-2.6) mg/dL Total Bilirubin (0.0-1.0) mg/dL Direct Bilirubin (0.0-0.5) mg/dL AST (5-31) U/L ALT (0-31) U/L Alkaline Phosphatase (39-117) U/L Ammonia (13-55) umol/L Troponin I High Sens (<3.5-17.0) ng/L B-Natriuretic Peptide (<100) pg/mL Total Protein (6.5-8.0) g/dL Albumin (3.5-5.0) g/dL Lipase (8-78) U/L Urine Color Urine Appearance Urine pH (5.0-8.0) Ur Specific [place] (1.005-1.025) Urine Protein (NEG-TRACE) MG/DL Urine Glucose (UA) (NEG) MG/DL Urine Ketones (NEG) MG/DL Urine Blood (NEG) Urine Nitrite (NEG) Ur Leukocyte Esterase (NEG) Urine Opiates Screen Not Detected (Not Detect) Ur Barbiturates Screen Not Detected (Not Detect) Ur Phencyclidine Scrn Not Detected (Not Detect) Ur Amphetamines Screen Not Detected (Not Detect) U Benzodiazepines Scrn Not Detected (Not Detect) Urine Cocaine Screen Not Detected (Not Detect) U Marijuana (THC) Screen Not Detected (Not Detect) Coronavirus (PCR) (Negative) Influenza Type A (PCR) (Negative) Influenza Type B (PCR) (Negative) RSV RNA Qual (PCR) (Negative) <Arik Dyer MD - Last Filed: 01/23/21 17:09> ECG Data ECG #1: Attestation: I personally reviewed and interpreted this ECG as follows: <JOCELYN Simpson - Last Filed: 01/15/21 18:06> ECG interpretation date: 01/15/21 <JOCELYN Simpson - Last Filed: 01/15/21 18:06> ECG interpretation time: 13:32 <JOCELYN Simpson - Last Filed: 01/15/21 18:06> Interpretation: EKG normal sinus rhythm with rate of 77. QTC 443. No STEMI <JOCELYN Simpson - Last Filed: 01/15/21 18:06> Discharge Plan Discharge Clinical Impression: Weakness, Chest pain, Confusion, Cough with hemoptysis <JOCELYN Simpson - Last Filed: 01/15/21 18:06> Patient Disposition: Admitted As Inpatient <JOCELYN Simpson - Last Filed: 01/15/21 18:06> Interventions: Admission Worksheet (ED) Last Done: 01/15/21 23:55 <JOCELYN Simpson - Last Filed: 01/15/21 18:06> Discharge Date/Time: 01/16/21 00:05 <JOCELYN Simpson - Last Filed: 01/15/21 18:06>
[2021-01-15 14:20] LABS: INTERNATIONAL NORM RATIO 1.1 (0.9-1.1); Prothrombin Time 12.7 SEC (10.8-13.0)
[2021-01-15 14:21] LABS: Ammonia 30 umol/L (13-55)
[2021-01-15 14:29] LABS: Lipase 16 U/L (8-78)
[2021-01-15 14:31] LABS: Alanine Aminotransferase 19 U/L (0-31); Albumin Level 4.1 g/dL (3.5-5.0); Alkaline Phosphatase 90 U/L (39-117); Anion Gap 13 (12-20); Aspartate Amino Transferase 23 U/L (5-31); Bilirubin Direct 0.2 mg/dL (0.0-0.5); Bilirubin Total 0.6 mg/dL (0.0-1.0); Blood Urea Nitrogen 9 mg/dL (9-16); Calcium 8.7 mg/dL (8.4-10.2); Carbon Dioxide 27 mmol/L (22-29); Chloride 108 mmol/L (96-108); Creatinine Clr Calc Pharmacy 100.2; Estimated Glomerular Filt Rate > 60; Glucose Random 94 mg/dL (60-115); Magnesium 2.4 mg/dL (1.6-2.6); Potassium 4.2 mmol/L (3.3-5.1); Sodium 144 mmol/L (135-145)
[2021-01-15 14:35] LABS: B Type Natriuretic Peptide 18 pg/mL (<100)
[2021-01-15 14:35] LABS: Partial Thromboplastin Time 36.9 SEC (24.1-38.0); Troponin-I High Sensitivity < 3.5 ng/L (<3.5-17.0)
[2021-01-15 14:38] LABS: Influenza A PCR NEGATIVE (Negative); Influenza B PCR NEGATIVE (Negative); Resp Syncy Virus RNA Qual PCR NEGATIVE (Negative); SARS COV2 PCR INHOUSE NEGATIVE (Negative)
[2021-01-15 14:46] LABS: SLIDE REVIEW VERIFIED
[2021-01-15] MEDS: iohexoL 350 MG/ML 100 ML INFUS..BTL IV (16:23)
[2021-01-15 16:36] LABS: Glucose Urine UA NEG (NEG); Leukocyte Esterase Urine NEG (NEG); Nitrite Urine NEG (NEG); Specific Gravity - Urine <= 1.005 (1.005-1.025); Urine Blood NEG (NEG); Urine Ketones NEG (NEG); Urine Protein NEG (NEG-TRACE)
[2021-01-15 16:37] LABS: Appearance Urine CLEAR; Color Urine YELLOW
[2021-01-15 17:00] LABS: Amphetamine Screen Urine Not Detected (Not Detect); Barbiturates, Urine Not Detected (Not Detect); Benzodiazepines Screen Urine Not Detected (Not Detect); Cannabinoid Screen Urine Not Detected (Not Detect); Cocaine Screen Urine Not Detected (Not Detect); Opiate Screen Urine Not Detected (Not Detect); Phencyclidine Screen Urine Not Detected (Not Detect)
--- NOTE | 2021-01-15 19:36 | PC.NURSE ---
Pt aaox4, resting on stretcher in NAD. Pt requesting this RN and provider to bedside. Pt states I've been here, I haven't gotten any medicine, and nobody has seen me. LOLITA Alcantara to bedside. Pt requesting pain meds stating I don't have any pain right now but whenever I move around, if I twist or turn, I feel pain in the center of my body. This RN and LOLITA Alacntara ask pt if she has pain at this time and pt denies. Pt continues to request pain meds stating I don't want this to get any worse. I don't want my pain to come back so I want pain meds. Maricruz out of room to review orders. Dr Ashby to bedside, assessing/interviewing pt. Plan for IV toradol. Pt denies QUIROS, weakness, dizziness, CP, SOB, abd pain, n/v/d, urinary sx at this time. Pt reports CP and SOB with associated intermittent cough/hemoptysis is transient. Pt VSS on room air. Pt stretcher in lowest locked position, rail raised, call dunaway within reach.
[2021-01-15] MEDS: Ketorolac Tromethamine 30 MG/ML VIAL IVPUSH (19:42)
[2021-01-15] MEDS: Ibuprofen 400 MG TABLET PO (22:35)
[2021-01-15] MEDS: buPROPion HCl XL 150 MG TAB.ER.24H PO (22:35)
--- NOTE | 2021-01-15 23:05 | P.HPHOSP_ITS ---
History of Present Illness Date of Service: 01/15/21 Chief Complaint: chest pain This is a 55-year-old female with past medical history of hypertension , HLD, DM, history of lumbosacral spinal surgery, history of neck surgery who presents to the hospital with complaints of chest pain that started Thursday and has been constant since. Patient reports that the pain is inside, she cannot explain it exactly how would is but she feels that there is pain inside of her mostly localized in the chest area and going to the back. Worse with her movement, the pain is 10/10, associated with shortness of breath on exposed surgeon, denies any trauma, no injury, no recent heavy lifting, no recent sickness or illness, she also complaining numbness tingling and weakness on the left side for over 7 years now, she reports no new changes, reports that the pain starts at her neck, she has a history of c2-c6 fusion. She is also complaining of coughing up blood. Patient reports that it is intermittent since Thursday, not with every coughing that she has blood clots with some she has small amount of bleeding, she any previous heart episode She otherwise denies any headache, change in vision, no abdominal pain nausea or vomiting, no diarrhea constipation, no urinary symptoms and no lower extremity On arrival to the ED hemodynamically stable with no significant abnormal vitals Labs are significant for WBC count of 5.5, hemoglobin of 12.8, otherwise unremarkable. UA negative. UDS negative, COVID-[address] angiogram revealed no thoracic aortic enlargement or dissection, no pneumothorax, airspace consolidation or effusion, CTA head and neck showed no evidence of acute intracranial hemorrhage or any med is territorial infection, CTA of the head and neck without proximal occlusion or flow-limiting stenosis, instrumental anterior fusion of C2 and C6. Past medical history as below and patient will be admitted for observation Review of Systems Review of Systems: Yes all other systems are reviewed and are negative [facility] Medical History Abdominal pain Dysuria H/O mixed hyperlipidemia Hypertension Ingrown toenail Moderate asthma without complication Type 2 diabetes mellitus Surgical History H/O colonoscopy History of lumbosacral spine surgery Hx of cervical spine surgery Social History Household Members: Family Housing: House Do you presently have visiting nurse or other home services: Yes Alcohol intake: unknown Smoking Status: Never smoker Smoked in Last 30 Days: No Use of substances other than those prescribed or required for medical reasons: No Any prior treatment program specific to substance use: No Have you been hit, kicked, punched, or otherwise hurt by someone within the past year? If so, by whom?: No Do you feel safe in your current relationship?: No Current Relationship Is there a partner from a previous relationship who is making you feel unsafe now?: No Are you made to feel afraid or neglected: No Advance Directives: No Advance Directives Information Provided: No Do you have thoughts of harming others: None Do you have a plan to hurt others: No Plan Recently lost weight without trying: No Meds Allergies Allergy/AdvReac Type Severity Reaction Status Date / Time No Known Allergies Allergy Verified 01/15/21 10:23 Active Medications: Current Medications Generic Name Dose Route Start Last Admin Trade Name Freq PRN Reason Stop Dose Admin Acetaminophen 650 mg 01/15/21 22:01 Acetaminophen Supp 650 Mg Supp.Rect NV Q6H PRN Pain, Mild (Pain Scale 1-3) Albuterol Sulfate 2.5 mg 01/15/21 22:01 Albuterol Sulfate (0.083%) 2.5 Mg/3 Ml Vial.Neb INHALE Q4H PRN Wheezing Amlodipine Besylate 10 mg 01/16/21 09:00 Amlodipine Besylate 10 Mg Tablet PO DAILY [facility] Protocol Aspirin 81 mg 01/16/21 09:00 Aspirin Enteric Coated 81 Mg Tablet.Dr PO DAILY [facility] Atorvastatin Calcium 40 mg 01/16/21 21:00 Atorvastatin Calcium 40 Mg Tablet PO BEDTIME [facility] Bupropion HCl 150 mg 01/15/21 22:01 01/15/21 22:35 Bupropion Hcl Xl 150 Mg Tab.Er.24h PO 150 mg DAILY [facility] Administration Docusate Sodium 100 mg 01/15/21 22:01 Docusate Sodium 100 Mg Capsule PO DAILY PRN Constipation Fluticasone/Vilanterol 1 puff 01/16/21 09:00 Fluticasone/Vilanterol 100/25 Blst.W.Dev INHALE DAILY [facility] Ibuprofen 400 mg 01/15/21 23:00 01/15/21 22:35 Ibuprofen 400 Mg Tablet PO 01/17/21 22:59 400 mg Q6H [facility] Administration Lisinopril 2.5 mg 01/16/21 09:00 Lisinopril 2.5 Mg Tablet PO DAILY [facility] Protocol Metoprolol Succinate 25 mg 01/16/21 09:00 Metoprolol Succinate Er 25 Mg Tab.Er.24h PO DAILY [facility] Protocol Ondansetron HCl 4 mg 01/15/21 22:01 Ondansetron Hcl 4 Mg/2 Ml Vial IVPUSH Q8H PRN Nausea and Vomiting Pharmacy Consult 1 each 01/15/21 13:04 Consult Rx Perform Med Rec MISCELLANE ONCE PRN Consult order Sodium Chloride 3 ml 01/16/21 00:00 0.9 % Sodium Chloride Flush 3 Ml Syringe IVFLUSH QSHIFT [facility] Home Medications Medication Instructions Recorded Confirmed Last Taken Type acetaminophen 650 mg PO TID PRN 01/15/21 01/15/21 Unknown History albuterol sulfate 1 amp INHALATION Q4H PRN 01/15/21 01/15/21 Unknown History bupropion HCl 150 mg 24 hr tablet, 150 mg PO QAM 01/15/21 01/15/21 Unknown History extended release empagliflozin 10 mg tablet 10 mg PO DAILY@0730 01/15/21 01/15/21 Unknown History inhalational spacing device #1 ea 01/15/21 Unknown History Physical Exam Vital Signs and Narrative: Vital Signs: Last Vital Signs Temp 98.4 F 01/15/21 19:33 Pulse 79 01/15/21 22:32 Resp 16 01/15/21 22:32 BP 115/71 01/15/21 22:32 Pulse Ox 98 01/15/21 22:32 Body Mass Index 28.8 Const: General: cooperative and no acute distress [place] ation/consciousness: patient oriented x3 Eyes: General: appearance normal, both eyes and all related structures Chest: Other: Reproducible chest wall pain on exam on palpation of the whole of the front of the chest Resp: Effort & Inspection: normal respiratory effort and able to speak in complete sentences Cardio: Rate: regular rate Rhythm: regular rhythm GI: Palpation (GI): Soft to palpation Auscultation: normal bowel sounds Skin: General skin exam: no rashes or lesions noted Neuro: General: patient oriented x3 Cognition (Neuro): normal cognition Extrem: General: Yes normal to inspection and Yes no pedal edema Results Labs CBC and Chem 7: 01/16/21 04:14 01/15/21 13:50 Labs: Laboratory Results - last 24 hr 01/15/21 01/15/21 01/15/21 13:39 13:49 13:50 MCV 76.6 L MCH 26.3 L MCHC 34.4 RDW 15.1 Plt Count 230 MPV 9.1 L Immature Gran % (Auto) 0.2 Neut % (Auto) 24.9 L Lymph % (Auto) 65.3 H [place] % (Auto) 6.5 Eos % (Auto) 2.2 Baso % (Auto) 0.9 Lymph # (Auto) 3.8 [place] # (Auto) 0.4 Eos # (Auto) 0.1 Baso # (Auto) 0.1 Abs Immat Gran (auto) 0.01 Absolute Neuts (auto) 1.5 L Absolute Nucleated RBC 0.000 Nucleated RBC % (auto) 0.0 Smear Tech's Comments VERIFIED PT INR APTT Anion Gap Estim Creat Clear Calc Estimated GFR Random Glucose Calcium Magnesium Total Bilirubin Direct Bilirubin AST ALT Alkaline Phosphatase Ammonia Troponin I High Sens B-Natriuretic Peptide 18 Total Protein Albumin Lipase Urine Color Urine Appearance Urine pH Ur Specific [place] Urine Protein Urine Glucose (UA) Urine Ketones Urine Blood Urine Nitrite Ur Leukocyte Esterase Urine Opiates Screen Ur Barbiturates Screen Ur Phencyclidine Scrn Ur Amphetamines Screen U Benzodiazepines Scrn Urine Cocaine Screen U Marijuana (THC) Screen Coronavirus (PCR) NEGATIVE Influenza Type A (PCR) NEGATIVE Influenza Type B (PCR) NEGATIVE RSV RNA Qual (PCR) NEGATIVE 01/15/21 01/15/21 01/15/21 13:50 13:50 13:50 MCV MCH MCHC RDW Plt Count MPV Immature Gran % (Auto) Neut % (Auto) Lymph % (Auto) [place] % (Auto) Eos % (Auto) Baso % (Auto) Lymph # (Auto) [place] # (Auto) Eos # (Auto) Baso # (Auto) Abs Immat Gran (auto) Absolute Neuts (auto) Absolute Nucleated RBC Nucleated RBC % (auto) Smear Tech's Comments PT INR APTT Anion Gap 13 Estim Creat Clear Calc 100.2 Estimated GFR > 60 Random Glucose 94 Calcium 8.7 Magnesium 2.4 Total Bilirubin 0.6 Direct Bilirubin 0.2 AST 23 ALT 19 Alkaline Phosphatase 90 Ammonia 30 Troponin I High Sens < 3.5 B-Natriuretic Peptide Total Protein 7.0 Albumin 4.1 Lipase Urine Color Urine Appearance Urine pH Ur Specific [place] Urine Protein Urine Glucose (UA) Urine Ketones Urine Blood Urine Nitrite Ur Leukocyte Esterase Urine Opiates Screen Ur Barbiturates Screen Ur Phencyclidine Scrn Ur Amphetamines Screen U Benzodiazepines Scrn Urine Cocaine Screen U Marijuana (THC) Screen Coronavirus (PCR) Influenza Type A (PCR) Influenza Type B (PCR) RSV RNA Qual (PCR) 01/15/21 01/15/21 01/15/21 13:50 13:50 16:26 MCV MCH MCHC RDW Plt Count MPV Immature Gran % (Auto) Neut % (Auto) Lymph % (Auto) [place] % (Auto) Eos % (Auto) Baso % (Auto) Lymph # (Auto) [place] # (Auto) Eos # (Auto) Baso # (Auto) Abs Immat Gran (auto) Absolute Neuts (auto) Absolute Nucleated RBC Nucleated RBC % (auto) Smear Tech's Comments PT 12.7 INR 1.1 APTT 36.9 Anion Gap Estim Creat Clear Calc Estimated GFR Random Glucose Calcium Magnesium Total Bilirubin Direct Bilirubin AST ALT Alkaline Phosphatase Ammonia Troponin I High Sens B-Natriuretic Peptide Total Protein Albumin Lipase 16 Urine Color YELLOW Urine Appearance CLEAR Urine pH 7.0 Ur Specific [place] <= 1.005 Urine Protein NEG Urine Glucose (UA) NEG Urine Ketones NEG Urine Blood NEG Urine Nitrite NEG Ur Leukocyte Esterase NEG Urine Opiates Screen Ur Barbiturates Screen Ur Phencyclidine Scrn Ur Amphetamines Screen U Benzodiazepines Scrn Urine Cocaine Screen U Marijuana (THC) Screen Coronavirus (PCR) Influenza Type A (PCR) Influenza Type B (PCR) RSV RNA Qual (PCR) 01/15/21 16:26 MCV MCH MCHC RDW Plt Count MPV Immature Gran % (Auto) Neut % (Auto) Lymph % (Auto) [place] % (Auto) Eos % (Auto) Baso % (Auto) Lymph # (Auto) [place] # (Auto) Eos # (Auto) Baso # (Auto) Abs Immat Gran (auto) Absolute Neuts (auto) Absolute Nucleated RBC Nucleated RBC % (auto) Smear Tech's Comments PT INR APTT Anion Gap Estim Creat Clear Calc Estimated GFR Random Glucose Calcium Magnesium Total Bilirubin Direct Bilirubin AST ALT Alkaline Phosphatase Ammonia Troponin I High Sens B-Natriuretic Peptide Total Protein Albumin Lipase Urine Color Urine Appearance Urine pH Ur Specific [place] Urine Protein Urine Glucose (UA) Urine Ketones Urine Blood Urine Nitrite Ur Leukocyte Esterase Urine Opiates Screen Not Detected Ur Barbiturates Screen Not Detected Ur Phencyclidine Scrn Not Detected Ur Amphetamines Screen Not Detected U Benzodiazepines Scrn Not Detected Urine Cocaine Screen Not Detected U Marijuana (THC) Screen Not Detected Coronavirus (PCR) Influenza Type A (PCR) Influenza Type B (PCR) RSV RNA Qual (PCR) Imaging Radiologist's Impressions: Impressions Head/Neck CTA 01/15/21 13:04 IMPRESSION: 1. No evidence of acute intracranial hemorrhage or edematous territorial infarction. 2. CTA of the head and neck without proximal occlusion or flow-limiting stenosis. 3. Instrumented anterior fusion of C2-C6. 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 This critical result was discussed with JOCELYN Simpson at 17:43 on 01/15/2021 and it was ascertained that the content and urgency of the report was understood at the time of direct communication. Chest X-Ray 01/15/21 13:05 IMPRESSION: No acute cardiopulmonary findings. Chest CTA 01/15/21 13:17 IMPRESSION: 1. No thoracic aortic enlargement or dissection. 2. No pneumothorax, airspace consolidation, or effusion. 3. CTA head neck described in separate report. Assessment and Plan (1) Chest pain: Status: Acute (2) Cough with hemoptysis: Status: Acute (3) Unilateral weakness: Status: Acute This is a 55-year-old female with past medical history as above who presents the hospital with chest pain hemoptysis and left-sided numbness tingling and weakness # chest pain - atypical - most likely secondary to costochondritis versus musculoskeletal - troponin completely negative, EKG no ST T-wave changes suggestive of ACS - will start on Motrin # cough with hemoptysis - unclear etiology - has no evidence of infection, PE on CT angiogram of the chest - will consult pulmonology as patient adamant to have this evaluated - hemoglobin has remained stable - COVID-19 negative # unilateral weakness - chronic for many years with no new changes - most likely secondary to her history of fusion of C2-C6 - CT angiogram of head and neck negative - has no neurological deficits # diabetes mellitus - low-dose sliding scale insulin - diabetic diet # hypertension - stable - continue home medications DVT prophylaxis: Early ambulation
--- NOTE | 2021-01-15 23:32 | PC.NURSE ---
This RN attempted report x 1.
[2021-01-16] VITALS: BP 117/77; PULSE 81; RESP 20; TEMP 36.5; O2SAT 96
[2021-01-16] MEDS: 0.9 % Sodium Chloride Flush 3 ML SYRINGE IVFLUSH ×2 (00:23→07:30)
[2021-01-16 00:37] LABS: Glucose, Whole Blood 153 mg/dL (60-115)
[2021-01-16 03:26] VITALS: BP 135/86; PULSE 83; RESP 19; TEMP 36.4; O2SAT 97
[2021-01-16 05:01] LABS: MANUAL DIFF FLAG NO
[2021-01-16 05:06] LABS: Basophils Absolute Auto 0.1 X10*3/uL (0.0-0.2); Basophils Percent Auto 0.9 % (0-2); Eosinophils Absolute Auto 0.2 X10*3/uL (0.0-0.4); Eosinophils Percent Auto 2.9 % (0-4); Hematocrit 37.7 % (37-47); Hemoglobin 12.8 g/dl (12.0-16.0); Imm Gran Abs Auto 0.01 X10*3/uL (0.00-0.03); Imm Gran Pct Auto 0.2 % (0.0-0.4); Lymphocytes Absolute Auto 3.1 X10*3/uL (1.2-4.9); Lymphocytes Percent Auto 56.2 % (20-40); Mean Corpuscular Volume 76.5 fL (80-98); Mean Platelet Volume 9.9 fL (9.4-12.3); Monocytes Absolute Auto 0.4 X10*3/uL (0.1-1.2); Monocytes Percent Auto 7.4 % (2-11); Neutrophils Absolute Auto 1.8 X10*3/uL (2.0-8.3); Neutrophils Percent Auto 32.4 % (45-73); Platelet Count 237 X10*3/uL (160-400); Red Blood Count 4.93 X10*6/uL (4.20-5.50); Red Cell Distribution Width 15.1 % (11.0-16.0); White Blood Count 5.5 X10*3/uL (4.8-10.8)
[2021-01-16 05:51] LABS: Anion Gap 15 (12-20); Blood Urea Nitrogen 12 mg/dL (9-16); Calcium 8.5 mg/dL (8.4-10.2); Carbon Dioxide 24 mmol/L (22-29); Chloride 105 mmol/L (96-108); Creatinine Clr Calc Pharmacy 91.4; Estimated Glomerular Filt Rate > 60; Glucose Random 115 mg/dL (60-115); Potassium 3.8 mmol/L (3.3-5.1); Sodium 140 mmol/L (135-145)
[2021-01-16 07:33] VITALS: BP 115/78; PULSE 88; RESP 18; TEMP 35.6; O2SAT 98
[2021-01-16] MEDS: Metoprolol Succinate ER 25 MG TAB.ER.24H PO (08:03)
[2021-01-16] MEDS: Aspirin Enteric Coated 81 MG TABLET.DR PO (08:03)
[2021-01-16] MEDS: lisinopriL 2.5 MG TABLET PO (08:03)
[2021-01-16] MEDS: buPROPion HCl XL 150 MG TAB.ER.24H PO (08:04)
[2021-01-16] MEDS: amLODIPine Besylate 10 MG TABLET PO (08:04)
[2021-01-16 08:07] LABS: Glucose, Whole Blood 137 mg/dL (60-115)
--- NOTE | 2021-01-16 09:34 | MHC.CM.PN ---
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 DISCHARGE PLAN: HOME SELF-CARE, FAMILY TO TRANSPORT PCP: EDVIN ARAGON PT'S WELLBUTRIN IS ORDERED BY PCP, REPORTS SHE HAS NOT HAS A THERAPIST SINCE MOVING FROM [place], PT REPORTS SHE FEELS STABLE AT THIS TIME AND DECLINES INFO ON [facility], PT REPORTS SHE WILL FOLLOW-UP AFTER SHE RETURNS FROM [place] NEXT MONTH.
--- NOTE | 2021-01-16 11:23 | MHC.CM.PN ---
PT DISCHARGING TODAY HOME SELF-CARE, FAMILY TO TRANSPORT
[2021-01-16 11:29] VITALS: BP 115/69; PULSE 81; RESP 18; TEMP 36; O2SAT 94
[2021-01-16 11:32] LABS: Glucose, Whole Blood 81 mg/dL (60-115)
--- NOTE | 2021-01-16 11:44 | PM.DS ---
DS: Providers Provider Date of Service: 01/16/21 Date of admission: 01/15/21 21:43 Primary care physician: Stacy Cisse MD Consults: 01/15/21 22:01 Consult to Pulmonology Routine Consulting Provider: Hailey Jacobsen Reason for consultation: hemoptysis Has provider been notified: No DS: Diagnosis Discharge Diagnosis (1) Chest pain: Status: Acute (2) Cough with hemoptysis: Status: Acute (3) Unilateral weakness: Status: Acute DS: Medications Discharge Medications Home Medications: Home Medications Medication Instructions Recorded Confirmed acetaminophen 650 mg PO TID PRN 01/15/21 01/15/21 albuterol sulfate 1 amp INHALATION Q4H PRN 01/15/21 01/15/21 bupropion HCl 150 mg 24 hr tablet, 150 mg PO QAM 01/15/21 01/15/21 extended release empagliflozin 10 mg tablet 10 mg PO DAILY@0730 01/15/21 01/15/21 inhalational spacing device #1 ea 01/15/21 Previous Rx's Medication Instructions Recorded lancets 28 gauge #100 ea 07/24/20 blood sugar diagnostic #100 ea 07/30/20 aspirin 81 mg tablet,delayed 81 mg PO DAILY #90 tab 11/29/20 release albuterol sulfate 90 mcg/actuation 2 puff PO QID PRN #8.5 g 12/19/20 aerosol inhaler amlodipine 10 mg tablet 10 mg PO DAILY #90 tab 12/19/20 atorvastatin 40 mg tablet 40 mg PO DAILY #90 tab 12/19/20 budesonide-formoterol HFA 80 2 puff PO BID #10.2 g 12/19/20 mcg-4.5 mcg/actuation aerosol inhaler lisinopril 2.5 mg tablet 2.5 mg PO DAILY #90 tab 12/19/20 metformin 1,000 mg tablet 1,000 mg PO BID #180 tab 12/19/20 metoprolol succinate 25 mg 25 mg PO DAILY #90 tab 12/19/20 tablet,extended release 24 hr DS: Summary Hospital Course Hospital Course: History of presenting illness Chief Complaint: chest pain This is a 55-year-old female with past medical history of hypertension , HLD, DM, history of lumbosacral spinal surgery, history of neck surgery who presents to the hospital with complaints of chest pain that started Thursday and has been constant since. Patient reports that the pain is inside, she cannot explain it exactly how would is but she feels that there is pain inside of her mostly localized in the chest area and going to the back. Worse with her movement, the pain is 10/10, associated with shortness of breath on exposed surgeon, denies any trauma, no injury, no recent heavy lifting, no recent sickness or illness, she also complaining numbness tingling and weakness on the left side for over 7 years now, she reports no new changes, reports that the pain starts at her neck, she has a history of c2-c6 fusion. She is also complaining of coughing up blood. Patient reports that it is intermittent since Thursday, not with every coughing that she has blood clots with some she has small amount of bleeding, she any previous heart episode She otherwise denies any headache, change in vision, no abdominal pain nausea or vomiting, no diarrhea constipation, no urinary symptoms and no lower extremity On arrival to the ED hemodynamically stable with no significant abnormal vitals Labs are significant for WBC count of 5.5, hemoglobin of 12.8, otherwise unremarkable. UA negative. UDS negative, COVID-[address] angiogram revealed no thoracic aortic enlargement or dissection, no pneumothorax, airspace consolidation or effusion, CTA head and neck showed no evidence of acute intracranial hemorrhage or any med is territorial infection, CTA of the head and neck without proximal occlusion or flow-limiting stenosis, instrumental anterior fusion of C2 and C6. Past medical history Abdominal pain Dysuria H/O mixed hyperlipidemia Hypertension Ingrown toenail Moderate asthma without complication Type 2 diabetes mellitus H/O colonoscopy History of lumbosacral spine surgery Hx of cervical spine surgery Hospital course Patient admitted with chest pain, hemoptysis and chronic left-sided numbness tingling weakness with no change, patient underwent extensive workup due to find out the cause of cough and hemoptysis a CT angiogram of chest was negative for a PE, COVID 19 test negative her hemoglobin hematocrit was stable, patient was not noted to have any recurrent of hemoptysis or chest pain during hospitalization and since patient has a follow-up appointment with television reporter in [place] Dr. Khadar Betancourt on 01/25 therefore she is being discharged home to have outpatient follow-up with her primary television reporter. Please refer to history and physical for detail workup done within last 24 hours. Discharge diagnosis atypical chest pain acute coronary syndrome ruled out Cough with hemoptysis Chronic left-sided weakness and tingling Diabetes mellitus Hypertension Time Spent with Patient Time attestation: Total time spent providing and/or coordinating discharge services: Discharge coordination time: Greater than 30 minutes Physical Exam Vital Signs: Vital Signs: Last Vital Signs Temp 96.8 F 01/16/21 11:29 Pulse 81 01/16/21 11:29 Resp 18 01/16/21 11:29 BP 115/69 01/16/21 11:29 Pulse Ox 94 01/16/21 11:29 Body Mass Index 28.8 General patient awake alert no distress Neck no JVD Reproducible chest wall pain on palpation to entire chest wall. Lungs clear to auscultation Heart regular rate rhythm Abdomen soft nontender bowel sounds are audible Extremities no edema DS: Data Data Completed and Pending Labs on day of discharge: Laboratory Results - last 24 hr 01/15/21 01/15/21 01/15/21 13:39 13:49 13:50 WBC 5.8 RBC 5.05 Hgb 13.3 Hct 38.7 MCV 76.6 L MCH 26.3 L MCHC 34.4 RDW 15.1 Plt Count 230 MPV 9.1 L Immature Gran % (Auto) 0.2 Neut % (Auto) 24.9 L Lymph % (Auto) 65.3 H [place] % (Auto) 6.5 Eos % (Auto) 2.2 Baso % (Auto) 0.9 Lymph # (Auto) 3.8 [place] # (Auto) 0.4 Eos # (Auto) 0.1 Baso # (Auto) 0.1 Abs Immat Gran (auto) 0.01 Absolute Neuts (auto) 1.5 L Absolute Nucleated RBC 0.000 Nucleated RBC % (auto) 0.0 Smear Tech's Comments VERIFIED PT INR APTT Sodium Potassium Chloride Carbon Dioxide Anion Gap BUN Creatinine Estim Creat Clear Calc Estimated GFR POC Glucose Random Glucose Calcium Magnesium Total Bilirubin Direct Bilirubin AST ALT Alkaline Phosphatase Ammonia Troponin I High Sens B-Natriuretic Peptide 18 Total Protein Albumin Lipase Urine Color Urine Appearance Urine pH Ur Specific Porter Urine Protein Urine Glucose (UA) Urine Ketones Urine Blood Urine Nitrite Ur Leukocyte Esterase Urine Opiates Screen Ur Barbiturates Screen Ur Phencyclidine Scrn Ur Amphetamines Screen U Benzodiazepines Scrn Urine Cocaine Screen U Marijuana (THC) Screen Coronavirus (PCR) NEGATIVE Influenza Type A (PCR) NEGATIVE Influenza Type B (PCR) NEGATIVE RSV RNA Qual (PCR) NEGATIVE 01/15/21 01/15/21 01/15/21 13:50 13:50 13:50 WBC RBC Hgb Hct MCV MCH MCHC RDW Plt Count MPV Immature Gran % (Auto) Neut % (Auto) Lymph % (Auto) [place] % (Auto) Eos % (Auto) Baso % (Auto) Lymph # (Auto) [place] # (Auto) Eos # (Auto) Baso # (Auto) Abs Immat Gran (auto) Absolute Neuts (auto) Absolute Nucleated RBC Nucleated RBC % (auto) Smear Tech's Comments PT INR APTT Sodium 144 Potassium 4.2 D Chloride 108 Carbon Dioxide 27 Anion Gap 13 BUN 9 Creatinine 0.72 Estim Creat Clear Calc 100.2 Estimated GFR > 60 POC Glucose Random Glucose 94 Calcium 8.7 Magnesium 2.4 Total Bilirubin 0.6 Direct Bilirubin 0.2 AST 23 ALT 19 Alkaline Phosphatase 90 Ammonia 30 Troponin I High Sens < 3.5 B-Natriuretic Peptide Total Protein 7.0 Albumin 4.1 Lipase Urine Color Urine Appearance Urine pH Ur Specific Porter Urine Protein Urine Glucose (UA) Urine Ketones Urine Blood Urine Nitrite Ur Leukocyte Esterase Urine Opiates Screen Ur Barbiturates Screen Ur Phencyclidine Scrn Ur Amphetamines Screen U Benzodiazepines Scrn Urine Cocaine Screen U Marijuana (THC) Screen Coronavirus (PCR) Influenza Type A (PCR) Influenza Type B (PCR) RSV RNA Qual (PCR) 01/15/21 01/15/21 01/15/21 13:50 13:50 16:26 WBC RBC Hgb Hct MCV MCH MCHC RDW Plt Count MPV Immature Gran % (Auto) Neut % (Auto) Lymph % (Auto) [place] % (Auto) Eos % (Auto) Baso % (Auto) Lymph # (Auto) [place] # (Auto) Eos # (Auto) Baso # (Auto) Abs Immat Gran (auto) Absolute Neuts (auto) Absolute Nucleated RBC Nucleated RBC % (auto) Smear Tech's Comments PT 12.7 INR 1.1 APTT 36.9 Sodium Potassium Chloride Carbon Dioxide Anion Gap BUN Creatinine Estim Creat Clear Calc Estimated GFR POC Glucose Random Glucose Calcium Magnesium Total Bilirubin Direct Bilirubin AST ALT Alkaline Phosphatase Ammonia Troponin I High Sens B-Natriuretic Peptide Total Protein Albumin Lipase 16 Urine Color YELLOW Urine Appearance CLEAR Urine pH 7.0 Ur Specific Porter <= 1.005 Urine Protein NEG Urine Glucose (UA) NEG Urine Ketones NEG Urine Blood NEG Urine Nitrite NEG Ur Leukocyte Esterase NEG Urine Opiates Screen Ur Barbiturates Screen Ur Phencyclidine Scrn Ur Amphetamines Screen U Benzodiazepines Scrn Urine Cocaine Screen U Marijuana (THC) Screen Coronavirus (PCR) Influenza Type A (PCR) Influenza Type B (PCR) RSV RNA Qual (PCR) 01/15/21 01/16/21 01/16/21 16:26 00:33 04:14 WBC 5.5 RBC 4.93 Hgb 12.8 Hct 37.7 MCV 76.5 L MCH 26.0 L MCHC 34.0 RDW 15.1 Plt Count 237 MPV 9.9 Immature Gran % (Auto) 0.2 Neut % (Auto) 32.4 L Lymph % (Auto) 56.2 H [place] % (Auto) 7.4 Eos % (Auto) 2.9 Baso % (Auto) 0.9 Lymph # (Auto) 3.1 [place] # (Auto) 0.4 Eos # (Auto) 0.2 Baso # (Auto) 0.1 Abs Immat Gran (auto) 0.01 Absolute Neuts (auto) 1.8 L Absolute Nucleated RBC 0.000 Nucleated RBC % (auto) 0.0 Smear Tech's Comments PT INR APTT Sodium Potassium Chloride Carbon Dioxide Anion Gap BUN Creatinine Estim Creat Clear Calc Estimated GFR POC Glucose 153 H Random Glucose Calcium Magnesium Total Bilirubin Direct Bilirubin AST ALT Alkaline Phosphatase Ammonia Troponin I High Sens B-Natriuretic Peptide Total Protein Albumin Lipase Urine Color Urine Appearance Urine pH Ur Specific [place] Urine Protein Urine Glucose (UA) Urine Ketones Urine Blood Urine Nitrite Ur Leukocyte Esterase Urine Opiates Screen Not Detected Ur Barbiturates Screen Not Detected Ur Phencyclidine Scrn Not Detected Ur Amphetamines Screen Not Detected U Benzodiazepines Scrn Not Detected Urine Cocaine Screen Not Detected U Marijuana (THC) Screen Not Detected Coronavirus (PCR) Influenza Type A (PCR) Influenza Type B (PCR) RSV RNA Qual (PCR) 01/16/21 01/16/21 01/16/21 04:14 07:33 11:27 WBC RBC Hgb Hct MCV MCH MCHC RDW Plt Count MPV Immature Gran % (Auto) Neut % (Auto) Lymph % (Auto) [place] % (Auto) Eos % (Auto) Baso % (Auto) Lymph # (Auto) [place] # (Auto) Eos # (Auto) Baso # (Auto) Abs Immat Gran (auto) Absolute Neuts (auto) Absolute Nucleated RBC Nucleated RBC % (auto) Smear Tech's Comments PT INR APTT Sodium 140 Potassium 3.8 Chloride 105 Carbon Dioxide 24 Anion Gap 15 BUN 12 Creatinine 0.79 Estim Creat Clear Calc 91.4 Estimated GFR > 60 POC Glucose 137 H 81 Random Glucose 115 Calcium 8.5 Magnesium Total Bilirubin Direct Bilirubin AST ALT Alkaline Phosphatase Ammonia Troponin I High Sens B-Natriuretic Peptide Total Protein Albumin Lipase Urine Color Urine Appearance Urine pH Ur Specific [place] Urine Protein Urine Glucose (UA) Urine Ketones Urine Blood Urine Nitrite Ur Leukocyte Esterase Urine Opiates Screen Ur Barbiturates Screen Ur Phencyclidine Scrn Ur Amphetamines Screen U Benzodiazepines Scrn Urine Cocaine Screen U Marijuana (THC) Screen Coronavirus (PCR) Influenza Type A (PCR) Influenza Type B (PCR) RSV RNA Qual (PCR) Discharge Plan Discharge Patient Disposition: Home, Self-Care Discharge Diagnosis: Atypical chest pain Cough with hemoptysis Referrals: Stayc Cisse MD [Primary Care Provider] - 1 Week Discharge Medications: Continued aspirin 81 mg tablet,delayed release (DR/EC) 81 mg PO DAILY Qty: 90 RF: 0 albuterol sulfate 2.5 mg /3 mL (0.083 %) solution for nebulization 1 amp inhalation Q4H PRN (Reason: Wheezing) RF: 0 acetaminophen 650 mg Tablet Extended Release 650 mg PO TID PRN (Reason: Pain) RF: 0 budesonide-formoterol 80-4.5 mcg/actuation HFA aerosol inhaler 2 puff PO BID Qty: 10.2 RF: 6 metformin 1,000 mg tablet 1,000 mg PO BID Qty: 180 RF: 3 albuterol sulfate 90 mcg/actuation HFA aerosol inhaler 2 puff PO QID PRN (Reason: wheezing) Qty: 8.5 RF: 4 amlodipine 10 mg tablet 10 mg PO DAILY Qty: 90 RF: 3 atorvastatin 40 mg tablet 40 mg PO DAILY Qty: 90 RF: 3 lisinopril 2.5 mg tablet 2.5 mg PO DAILY Qty: 90 RF: 3 metoprolol succinate 25 mg tablet extended release 24 hr 25 mg PO DAILY Qty: 90 RF: 3 empagliflozin 10 mg tablet 10 mg PO DAILY@0730 RF: 0 bupropion HCl 150 mg tablet extended release 24 hr 150 mg PO QAM RF: 0 No Action (DME) lancets [FreeStyle Lancets] 28 gauge misc See Rx Instructions .ROUTE .MEDSUPPLY Qty: 100 RF: 2 (DME) FreeStyle Test Strip See Rx Instructions .ROUTE .MEDSUPPLY Qty: 100 RF: 2 (DME) ProChamber Spacer See Rx Instructions ea .ROUTE .MEDSUPPLY Qty: 1 RF: 0 Discharge Orders: Discharge Order (Routine); Ordered 01/16/21 Ordered By: Axel Bowman Diet: diabetic diet and low fat, low cholesterol Activity on Discharge: As tolerated Stand Alone Forms: Patient Portal Discharge page Activity Restrictions/Additional Instructions: YOU HAVE A FOLLOW UP APPOINTMENT WITH PULMONOLOGY AT [address] ON December AT 10AM . [address] IF YOU NEED TO CHANGE THE APPOINTMENT THE PHONE NUMBER IS [phone] Care Plan Goals: Continue all home medications as before and follow up with pulmonology as previously planned. Health Concerns: You admitted with chest pain, that seems noncardiac, all workup including chest CT angiogram is normal Plan of Treatment: Outpatient follow-up with primary care physician and television reporter in [place] as previously planned. Assessment: See discharge summary
== END 2021-01-16 12:25 | disposition home or self-care (01) ==
LOC: HO.ED 17:38 → HO.EDOVER 21:52 → HO.S3 22:22
PROVIDERS: Physician Assistant; Admitting Provider Internal Medicine; Emergency Provider Emergency Medicine; PCP Internal Medicine; Visit Provider Hospitalist
DX: R07.9 Chest pain, unspecified (principal); R04.2 Hemoptysis; R53.1 Weakness; R41.0 Disorientation, unspecified; I10 Essential (primary) hypertension; E78.5 Hyperlipidemia, unspecified; E11.9 Type 2 diabetes mellitus without complications; R94.31 Abnormal electrocardiogram [ECG] [EKG]; Z20.822 Contact with and (suspected) exposure to COVID-19; Z79.84 Long term (current) use of oral hypoglycemic drugs; Z79.899 Other long term (current) drug therapy
CPT/HCPCS: 0241U; 36415; 70496; 70498; 71045; 71275; 80048; 80076; 80307; 81003; 82140; 82947; 83690; 83735; 83880; 84484; 85025; 85610; 85730; 93005; 99218; 99285; J1885; Q9967

== ENCOUNTER 2021-04-17 17:55 | Emergency (ER) | payer OTHER, SELFPAY ==
--- NOTE | ~2021-04-17 | CT_ITS ---
EXAMINATION: CT HEAD WITHOUT CONTRAST CT CERVICAL SPINE WITHOUT CONTRAST CLINICAL INFORMATION: Trauma to the head. COMPARISON: CT head January 15, 2021 TECHNIQUE: Imaging was performed from the skull base to vertex without intravenous administration of contrast. In addition, helical noncontrast CT imaging was acquired through the cervical spine and source images were reviewed along with axial reconstructions and sagittal and coronal MPRs. [This CT examination was performed using dose optimization techniques as appropriate, variously including the following: *Automated exposure control *Adjustment of mA and/or kV according to patient size (this includes techniques or standardized protocols for targeted exams where dose is matched to indication/reason for exam; i.e. extremities or head) *Use of iterative reconstruction technique] DLP: 1245 mGy-cm FINDINGS: HEAD: No intracranial mass, hemorrhage, or midline shift is visualized. The ventricles and sulci are proportional. No extra-axial collections are identified. The paranasal sinuses and mastoid air cells are well aerated. CERVICAL SPINE: There is no evidence of acute cervical spine fracture. Vertebral bodies remain normal in height. Cervical vertebrae have normal alignment. Status post cervical spine fusion with anterior plate and screw C3-C5. There is bony fusion of the C5-C6 vertebrae and posterior elements. There is degenerative disc height narrowing and vertebral endplate spurs at C6-C7 and C7-T1. Diffuse facet joint arthrosis throughout cervical spine. No pre- or paravertebral soft tissue abnormality is identified. Limited assessment of the lung apices is unremarkable. CT/CT cervical spine wo con IMPRESSION: 1. No acute intracranial pathology. 2. No CT evidence of acute cervical spine fracture or traumatic subluxation
--- NOTE | ~2021-04-17 | CT_ITS ---
EXAMINATION: CT HEAD WITHOUT CONTRAST CT CERVICAL SPINE WITHOUT CONTRAST CLINICAL INFORMATION: Trauma to the head. COMPARISON: CT head January 15, 2021 TECHNIQUE: Imaging was performed from the skull base to vertex without intravenous administration of contrast. In addition, helical noncontrast CT imaging was acquired through the cervical spine and source images were reviewed along with axial reconstructions and sagittal and coronal MPRs. [This CT examination was performed using dose optimization techniques as appropriate, variously including the following: *Automated exposure control *Adjustment of mA and/or kV according to patient size (this includes techniques or standardized protocols for targeted exams where dose is matched to indication/reason for exam; i.e. extremities or head) *Use of iterative reconstruction technique] DLP: 1245 mGy-cm FINDINGS: HEAD: No intracranial mass, hemorrhage, or midline shift is visualized. The ventricles and sulci are proportional. No extra-axial collections are identified. The paranasal sinuses and mastoid air cells are well aerated. CERVICAL SPINE: There is no evidence of acute cervical spine fracture. Vertebral bodies remain normal in height. Cervical vertebrae have normal alignment. Status post cervical spine fusion with anterior plate and screw C3-C5. There is bony fusion of the C5-C6 vertebrae and posterior elements. There is degenerative disc height narrowing and vertebral endplate spurs at C6-C7 and C7-T1. Diffuse facet joint arthrosis throughout cervical spine. No pre- or paravertebral soft tissue abnormality is identified. Limited assessment of the lung apices is unremarkable. CT/CT head/brain wo con IMPRESSION: 1. No acute intracranial pathology. 2. No CT evidence of acute cervical spine fracture or traumatic subluxation
[2021-04-17 19:21] VITALS: BP 153/91; PULSE 71; RESP 16; TEMP 36.9; O2SAT 96; BMI 31.1
--- NOTE | 2021-04-17 20:01 | ED_ITS ---
HPI - Fall General Chief Complaint: Fall Stated Complaint: fall/Head injury Time Seen by Provider: 04/17/21 20:01 Related Data Home Medications Medication Instructions Recorded Confirmed acetaminophen 650 mg PO TID PRN 01/15/21 01/22/21 albuterol sulfate 1 amp INHALATION Q4H PRN 01/15/21 01/22/21 bupropion HCl 150 mg 24 hr tablet, 150 mg PO QAM 01/15/21 01/22/21 extended release empagliflozin 10 mg tablet 10 mg PO DAILY@0730 01/15/21 01/22/21 inhalational spacing device #1 ea 01/15/21 01/22/21 Previous Rx's Medication Instructions Recorded lancets 28 gauge #100 ea 07/24/20 blood sugar diagnostic #100 ea 07/30/20 aspirin 81 mg tablet,delayed 81 mg PO DAILY #90 tab 11/29/20 release albuterol sulfate 90 mcg/actuation 2 puff PO QID PRN #8.5 g 12/19/20 aerosol inhaler amlodipine 10 mg tablet 10 mg PO DAILY #90 tab 12/19/20 atorvastatin 40 mg tablet 40 mg PO DAILY #90 tab 12/19/20 budesonide-formoterol HFA 80 2 puff PO BID #10.2 g 12/19/20 mcg-4.5 mcg/actuation aerosol inhaler metformin 1,000 mg tablet 1,000 mg PO BID #180 tab 12/19/20 Blood Pressure Monitor #1 ea 02/04/21 lisinopril 2.5 mg tablet 2.5 mg PO DAILY #90 tab 03/18/21 metoprolol succinate 25 mg 25 mg PO DAILY #90 tab 03/18/21 tablet,extended release 24 hr compr.stocking,knee,long,large #12 ea 03/26/21 acetaminophen 500 mg PO Q8H PRN #30 cap 04/17/21 tramadol 50 mg PO DAILY PRN #7 tab 04/17/21 Allergies Allergy/AdvReac Type Severity Reaction Status Date / Time No Known Allergies Allergy Verified 04/17/21 19:24 Review of Systems Review of Systems: Constitutional : No Weight loss, No Fever, No Chills, No Night Sweats, No Fatigue, No Malaise ENT/Mouth : No Hearing loss, No Ear Pain, No Nasal Congestion, No Sinus Pain, No Hoarseness, No sore throat, No Rhinorrhea, No Swallowing Difficulty Head: headache, hit head. Eyes: No Eye Pain, No Swelling, No Redness, No Foreign Body, No Discharge, No Vision Changes Cardiovascular : No Chest Pain, No SOB, No Dyspnea on Exertion, No Orthopnea, No Edema, No Palpitations Respiratory : No Cough, No Sputum, No Wheezing, No Smoke Exposure, No Dyspnea Musculoskeletal : No joint pain, No Myalgias, No Joint Swelling Skin : No Skin Lesions, No rash Neuro : No Weakness, No Numbness, No Paresthesias, No Loss of Consciousness, No Dizziness, No Headache Psych : No Anxiety/Panic, No Depression, No SI/HI/AH/VH, No Social Issues, Heme/Lymph: No Bruising, No Bleeding,No Lymphadenopathy Endocrine : No Polyuria, No Polydipsia, No Temperature Intolerance Yes all other systems are reviewed and are negative [facility] Past Medical History Medical History (Updated 04/17/21 @ 21:37 by Margo Varela [facility]) Abdominal pain Dysuria H/O mixed hyperlipidemia Hypertension Ingrown toenail Moderate asthma without complication Type 2 diabetes mellitus Unilateral weakness Weakness Surgical History H/O colonoscopy History of lumbosacral spine surgery Hx of cervical spine surgery Social History Social History Household Members: Family Housing: House Do you presently have visiting nurse or other home services: Yes Alcohol intake: unknown Advance Directives: No Advance Directives Information Provided: No service: No Current occupational status: employed Physical Exam Vital Signs: Vital Signs: Last Vital Signs Temp 98.4 F 04/17/21 19: Pulse 71 04/17/21 19:21 Resp 16 04/17/21 19: BP 153/91 H 04/17/21 19: Pulse Ox 96 04/17/21 19:21 Body Mass Index 31.1 Const: General: healthy appearing, no acute distress and well developed Nutritional Appearance: well nourished Orientation/consciousness: patient oriented x3 HENMT: Head: Yes hematoma ( Occipital) Ears: hearing grossly normal bilaterally, external ears normal, TM's normal bilaterally and mastoids normal General nose exam: Normal external nose present Neck: Neck: Yes normal visual inspection, Yes full ROM and Yes trachea midline Thyroid: Thyroid normal Resp: Auscultation: clear to auscultation bilaterally Cardio: Rate: regular rate Rhythm: regular rhythm GI: Inspection: Yes normal to inspection and No distended Palpation (GI): No hepatosplenomegaly present Auscultation: normal bowel sounds Back/Spine/Pelvis: Cervical Spine: cervical muscular tenderness Thoracic/Lumbar Spine: thoracic and lumbar spine normal to inspection Skin: General skin exam: elasticity normal, turgor normal and dry skin Neuro: General: patient oriented x3 Course Course Course Narrative: 55 years old female with past medical history of diabetes, hypertension is here today for complaints of headache. Patient reports that she fell 2 days ago. This was mechanical fall. Patient reports that she was trying to sit down while her to year old grandson pulled the chair from under her. Patient fell backwards and hit her head against the sink. Patient is on low- dose aspirin, today she reports to have pressure-like headache. Patient denies any dizziness, LOC, presyncope, syncope. Patient denies any other symptoms. She reports that she had cervical spine surgery in the past for this confusion in C2-C6 at [facility] about 5 years ago. Tenderness to cervical spine on exam. We will do CT scan of the head and of the cervical spine. We will medicate her with tramadol for pain. Reevaluation(s) Reevaluation #1: CTs spine and head negative for any acute processes. Patient will be sent home to follow-up with her PCP. Patient can take tramadol and Tylenol. She verbalizes understanding of the instructions and is agreeable to plan of care. She was given the opportunity to ask questions and all questions answered. MDM - Fall Imaging Data head CT, cervical spine CT: Radiologist's impression: FINDINGS: HEAD: No intracranial mass, hemorrhage, or midline shift is visualized. The ventricles and sulci are proportional. No extra-axial collections are identified. The paranasal sinuses and mastoid air cells are well aerated. CERVICAL SPINE: There is no evidence of acute cervical spine fracture. Vertebral bodies remain normal in height. Cervical vertebrae have normal alignment. Status post cervical spine fusion with anterior plate and screw C3-C5. There is bony fusion of the C5-C6 vertebrae and posterior elements. There is degenerative disc height narrowing and vertebral endplate spurs at C6-C7 and C7-T1. Diffuse facet joint arthrosis throughout cervical spine. Discharge Plan Discharge Clinical Impression: Hematoma Fall Qualifiers: Encounter type: initial encounter Qualified Code(s): W19.XXXA - Unspecified fall, initial encounter Contusion Qualifiers: Encounter type: initial encounter Contusion area: head Contusion of head detail: scalp Qualified Code(s): S00.03XA - Contusion of scalp, initial encounter Patient Disposition: Home, Self-Care Instructions: Contusion in Adults (ED), Hematoma (ED) Additional Instructions: you were seen here today after sustaining a fall. Your CT scan of the head and neck were negative for any acute findings. You were given medication for pain, this medication can cause some drowsiness. Please do not drive when taking this medication. Do not take ibuprofen for the next few days, however you can take Tylenol. Please follow-up with your PCP in the next 2-3 days. You may return to emergency department if you will experience worsening symptoms or any additional concerning symptoms. Prescriptions: New acetaminophen 500 mg capsule 500 mg PO Q8H PRN (Reason: pain) Qty: 30 RF: 0 tramadol 50 mg tablet 50 mg PO DAILY PRN (Reason: pain) Qty: 7 RF: 0 No Action (DME) lancets [FreeStyle Lancets] 28 gauge misc See Rx Instructions .ROUTE .MEDSUPPLY Qty: 100 RF: 2 (DME) FreeStyle Test Strip See Rx Instructions .ROUTE .MEDSUPPLY Qty: 100 RF: 2 aspirin 81 mg tablet,delayed release (DR/EC) 81 mg PO DAILY Qty: 90 RF: 0 (DME) Blood Pressure Monitor See Rx Instructions .Route .MEDSUPPLY Qty: 1 RF: 0 lisinopril 2.5 mg tablet 2.5 mg PO DAILY Qty: 90 RF: 3 metoprolol succinate 25 mg tablet extended release 24 hr 25 mg PO DAILY Qty: 90 RF: 3 (DME) compr.stocking,knee,long,large Misc See Rx Instructions .ROUTE .MEDSUPPLY Qty: 12 RF: 2 albuterol sulfate 2.5 mg /3 mL (0.083 %) solution for nebulization 1 amp inhalation Q4H PRN (Reason: Wheezing) RF: 0 acetaminophen 650 mg Tablet Extended Release 650 mg PO TID PRN (Reason: Pain) RF: 0 budesonide-formoterol 80-4.5 mcg/actuation HFA aerosol inhaler 2 puff PO BID Qty: 10.2 RF: 6 metformin 1,000 mg tablet 1,000 mg PO BID Qty: 180 RF: 3 albuterol sulfate 90 mcg/actuation HFA aerosol inhaler 2 puff PO QID PRN (Reason: wheezing) Qty: 8.5 RF: 4 amlodipine 10 mg tablet 10 mg PO DAILY Qty: 90 RF: 3 atorvastatin 40 mg tablet 40 mg PO DAILY Qty: 90 RF: 3 empagliflozin 10 mg tablet 10 mg PO DAILY@0730 RF: 0 bupropion HCl 150 mg tablet extended release 24 hr 150 mg PO QAM RF: 0 (DME) ProChamber Spacer See Rx Instructions ea .ROUTE .MEDSUPPLY Qty: 1 RF: 0
[2021-04-17] MEDS: traMADoL HCL 50 MG TABLET PO (20:49)
== END 2021-04-17 21:45 | disposition home or self-care (01) ==
PROVIDERS: Emergency Provider Emergency Medicine; PCP Internal Medicine
DX: S00.03XA Contusion of scalp, initial encounter (principal); I10 Essential (primary) hypertension; E11.9 Type 2 diabetes mellitus without complications; Z79.82 Long term (current) use of aspirin; Z79.84 Long term (current) use of oral hypoglycemic drugs; Z79.899 Other long term (current) drug therapy; W18.30XA Fall on same level, unspecified, initial encounter; Y93.9 Activity, unspecified; Y92.009 Unspecified place in unspecified non-institutional (private) residence as the place of occurrence of the external cause; Y99.9 Unspecified external cause status
CPT/HCPCS: 70450; 72125; 99283; 99284

== ENCOUNTER 2021-05-13 10:48 | Emergency (ER) | payer OTHER, SELFPAY ==
[2021-05-13 11:38] VITALS: BP 124/86; PULSE 73; RESP 16; TEMP 36.7; O2SAT 98; BMI 30.2
[2021-05-13] MEDS: Acetaminophen 325 MG TABLET 650 MG PO (11:45)
--- NOTE | 2021-05-13 12:24 | ED_ITS ---
HPI - Headache General Chief Complaint: Headache Stated Complaint: headache Time Seen by Provider: 05/13/21 12:24 Source: patient Mode of arrival: ambulatory Limitations: no limitations History of Present Illness HPI Narrative: Patient with occipital headache for last few months been here [address] head and CTA head and neck which was negative patient fell in February 2021 with no loss of consciousness with mild head injury pain is throbbing sharp intermittent feels better if she lays on the other side and gets worse when she touches her scalp. No nausea no vomiting no light sensitivity no fever no chills no focal deficits Related Data Home Medications Medication Instructions Recorded Confirmed acetaminophen 650 mg 650 mg PO TID PRN 01/15/21 01/22/21 tablet,extended release albuterol sulfate 1 amp INHALATION Q4H PRN 01/15/21 01/22/21 bupropion HCl 150 mg 24 hr tablet, 150 mg PO QAM 01/15/21 01/22/21 extended release inhalational spacing device #1 ea 01/15/21 01/22/21 Previous Rx's Medication Instructions Recorded lancets 28 gauge (FreeStyle #100 ea 07/24/20 Lancets) blood sugar diagnostic (FreeStyle #100 ea 07/30/20 Test) aspirin 81 mg tablet,delayed 81 mg PO DAILY #90 tab 11/29/20 release albuterol sulfate 90 mcg/actuation 2 puff PO QID PRN #8.5 g 12/19/20 aerosol inhaler amlodipine 10 mg tablet 10 mg PO DAILY #90 tab 12/19/20 atorvastatin 40 mg tablet 40 mg PO DAILY #90 tab 12/19/20 budesonide-formoterol HFA 80 2 puff PO BID #10.2 g 12/19/20 mcg-4.5 mcg/actuation aerosol inhaler metformin 1,000 mg tablet 1,000 mg PO BID #180 tab 12/19/20 Blood Pressure Monitor #1 ea 02/04/21 lisinopril 2.5 mg tablet 2.5 mg PO DAILY #90 tab 03/18/21 metoprolol succinate 25 mg 25 mg PO DAILY #90 tab 03/18/21 tablet,extended release 24 hr compr.stocking,knee,long,large #12 ea 03/26/21 acetaminophen 500 mg capsule 500 mg PO Q8H PRN #30 cap 04/17/21 tramadol 50 mg tablet 50 mg PO DAILY PRN #7 tab 04/17/21 empagliflozin 10 mg tablet 10 mg PO DAILY@0730 #90 tab 04/18/21 nebulizers #1 ea 04/24/21 Allergies Allergy/AdvReac Type Severity Reaction Status Date / Time No Known Allergies Allergy Verified 04/17/21 19:24 Review of Systems Review of Systems: Yes all other systems are reviewed and are negative [facility] Past Medical History Medical History Abdominal pain Dysuria H/O mixed hyperlipidemia Hypertension Ingrown toenail Moderate asthma without complication Type 2 diabetes mellitus Unilateral weakness Weakness Surgical History H/O colonoscopy History of lumbosacral spine surgery Hx of cervical spine surgery Social History Social History Household Members: Family Housing: House Do you presently have visiting nurse or other home services: Yes Alcohol intake: unknown Advance Directives: No Advance Directives Information Provided: No Patient : No service: No Current occupational status: employed Physical Exam Vital Signs: Vital Signs: Last Vital Signs Temp 98.1 F 05/13/21 11:38 Pulse 73 05/13/21 11:38 Resp 16 05/13/21 11:38 BP 124/86 05/13/21 11:38 Pulse Ox 98 05/13/21 11:38 Body Mass Index 30.2 Appearance: Alert. Oriented X3. No acute distress. Eyes: PERRLA, No Nystagmus HEENT: Pharynx normal. Oral Mucosa moist local scalp tenderness left occipital area at the site of greater occipital nerve Neck: Normal inspection. Neck supple. CVS: Normal heart rate and rhythm. Pulses normal. Respiratory: No respiratory distress. Equal air entry bilateral, no wheezing/rales/rhonchi Abdomen: Soft and nontender. Skin: Skin warm and dry. Normal skin color. Normal skin turgor. Extremities: No lower extremity edema. No calf tenderness Neuro: Oriented X 3. No motor deficit. No sensory deficit.No cerebellar signs , cranial nerves II-XII intact Procedures Nerve Block Nerve Block 1: Time out performed: Yes Local Anesthetic: lidocaine 2% and other anesthetic (With Depo-Medrol 40 mg) Amount of anesthesia used (mL): 2 Side: left Nerve Blocks: occipital Procedure Successful: Yes Patient Tolerated Procedure: well Complications: none Discharge Plan Discharge Clinical Impression: Occipital neuralgia of left side Patient Disposition: Home, Self-Care Instructions: Acute Headache (ED) Additional Instructions: You have occipital neuralgia. Nerve block was given. Hopefully your pain will get better Follow-up with PCP if not better Prescriptions: No Action (DME) lancets [FreeStyle Lancets] 28 gauge misc See Rx Instructions .ROUTE .MEDSUPPLY Qty: 100 RF: 2 (DME) FreeStyle Test Strip See Rx Instructions .ROUTE .MEDSUPPLY Qty: 100 RF: 2 aspirin 81 mg tablet,delayed release (DR/EC) 81 mg PO DAILY Qty: 90 RF: 0 (DME) Blood Pressure Monitor See Rx Instructions .Route .MEDSUPPLY Qty: 1 RF: 0 lisinopril 2.5 mg tablet 2.5 mg PO DAILY Qty: 90 RF: 3 metoprolol succinate 25 mg tablet extended release 24 hr 25 mg PO DAILY Qty: 90 RF: 3 (DME) compr.stocking,knee,long,large Misc See Rx Instructions .ROUTE .MEDSUPPLY Qty: 12 RF: 2 empagliflozin 10 mg tablet 10 mg PO DAILY@0730 Qty: 90 RF: 3 (DME) nebulizers Misc See Rx Instructions .Route Qty: 1 RF: 0 albuterol sulfate 2.5 mg /3 mL (0.083 %) solution for nebulization 1 amp inhalation Q4H PRN (Reason: Wheezing) RF: 0 acetaminophen 650 mg Tablet Extended Release 650 mg PO TID PRN (Reason: Pain) RF: 0 acetaminophen 500 mg capsule 500 mg PO Q8H PRN (Reason: pain) Qty: 30 RF: 0 tramadol 50 mg tablet 50 mg PO DAILY PRN (Reason: pain) Qty: 7 RF: 0 budesonide-formoterol 80-4.5 mcg/actuation HFA aerosol inhaler 2 puff PO BID Qty: 10.2 RF: 6 metformin 1,000 mg tablet 1,000 mg PO BID Qty: 180 RF: 3 albuterol sulfate 90 mcg/actuation HFA aerosol inhaler 2 puff PO QID PRN (Reason: wheezing) Qty: 8.5 RF: 4 amlodipine 10 mg tablet 10 mg PO DAILY Qty: 90 RF: 3 atorvastatin 40 mg tablet 40 mg PO DAILY Qty: 90 RF: 3 bupropion HCl 150 mg tablet extended release 24 hr 150 mg PO QAM RF: 0 (DME) ProChamber Spacer See Rx Instructions ea .ROUTE .MEDSUPPLY Qty: 1 RF: 0
[2021-05-13] MEDS: Lidocaine HCl 2 % MPF 5 ML VIAL INFILTRATI (13:10)
[2021-05-13] MEDS: methylPREDNISolone acetate 40 MG VIAL IM (13:11)
== END 2021-05-13 13:26 | disposition home or self-care (01) ==
PROVIDERS: Emergency Provider Internal Medicine; PCP Internal Medicine
DX: M54.81 Occipital neuralgia (principal); E11.9 Type 2 diabetes mellitus without complications; I10 Essential (primary) hypertension
CPT/HCPCS: 64450; 96372; 99283; 99284; J1020

== ENCOUNTER 2021-05-21 14:25 | Emergency (ER) | payer OTHER, SELFPAY ==
[2021-05-21 14:53] VITALS: BP 164/102; PULSE 89; RESP 16; TEMP 37; O2SAT 98; BMI 31.0
--- NOTE | 2021-05-21 16:27 | ED_ITS ---
HPI - Headache General Chief Complaint: Head Injury Stated Complaint: head pain - fell 2 months ago Time Seen by Provider: 05/21/21 16:13 Source: patient Mode of arrival: ambulatory Limitations: no limitations History of Present Illness HPI Narrative: Patient with her occipital headache since she fell from a chair in 04/[address] head negative last time and was seen was given nerve block to the right greater occipital nerve patient responded but lasted only for few days comes back with similar headache in the back part of the head, no nausea no vomiting no fever no chills patient taking tramadol for chronic pain no history of migraine headache Related Data Home Medications Medication Instructions Recorded Confirmed acetaminophen 650 mg 650 mg PO TID PRN 01/15/21 01/22/21 tablet,extended release albuterol sulfate 1 amp INHALATION Q4H PRN 01/15/21 01/22/21 bupropion HCl 150 mg 24 hr tablet, 150 mg PO QAM 01/15/21 01/22/21 extended release inhalational spacing device #1 ea 01/15/21 01/22/21 Previous Rx's Medication Instructions Recorded lancets 28 gauge (FreeStyle #100 ea 07/24/20 Lancets) blood sugar diagnostic (FreeStyle #100 ea 07/30/20 Test) aspirin 81 mg tablet,delayed 81 mg PO DAILY #90 tab 11/29/20 release albuterol sulfate 90 mcg/actuation 2 puff PO QID PRN #8.5 g 12/19/20 aerosol inhaler amlodipine 10 mg tablet 10 mg PO DAILY #90 tab 12/19/20 atorvastatin 40 mg tablet 40 mg PO DAILY #90 tab 12/19/20 budesonide-formoterol HFA 80 2 puff PO BID #10.2 g 12/19/20 mcg-4.5 mcg/actuation aerosol inhaler metformin 1,000 mg tablet 1,000 mg PO BID #180 tab 12/19/20 Blood Pressure Monitor #1 ea 02/04/21 lisinopril 2.5 mg tablet 2.5 mg PO DAILY #90 tab 03/18/21 metoprolol succinate 25 mg 25 mg PO DAILY #90 tab 03/18/21 tablet,extended release 24 hr compr.stocking,knee,long,large #12 ea 03/26/21 acetaminophen 500 mg capsule 500 mg PO Q8H PRN #30 cap 04/17/21 tramadol 50 mg tablet 50 mg PO DAILY PRN #7 tab 04/17/21 empagliflozin 10 mg tablet 10 mg PO DAILY@0730 #90 tab 04/18/21 nebulizers #1 ea 04/24/21 carbamazepine 200 mg tablet 200 mg PO TID #30 tab 05/21/21 (Tegretol) Allergies Allergy/AdvReac Type Severity Reaction Status Date / Time No Known Allergies Allergy Verified 04/17/21 19:24 Review of Systems Review of Systems: Yes all other systems are reviewed and are negative [facility] Past Medical History Medical History Abdominal pain Dysuria H/O mixed hyperlipidemia Hypertension Ingrown toenail Moderate asthma without complication Type 2 diabetes mellitus Unilateral weakness Weakness Surgical History H/O colonoscopy History of lumbosacral spine surgery Hx of cervical spine surgery Social History Social History Household Members: Family Housing: House Do you presently have visiting nurse or other home services: Yes Alcohol intake: unknown Advance Directives: No Advance Directives Information Provided: No service: No Current occupational status: employed Physical Exam Vital Signs: Vital Signs: Last Vital Signs Temp 98.6 F 05/21/21 14:53 Pulse 89 05/21/21 14:53 Resp 16 05/21/21 14:53 BP 164/102 H 05/21/21 14:53 Pulse Ox 98 05/21/21 14:53 Body Mass Index 31.0 Appearance: Alert. Oriented X3. No acute distress. Eyes: PERRLA, No Nystagmus HEENT: Pharynx normal. Oral Mucosa moist, diffuse occipital tenderness especially on the right side Neck: Normal inspection. Neck supple. CVS: Normal heart rate and rhythm. Pulses normal. Respiratory: No respiratory distress. Equal air entry bilateral, no wheezing/rales/rhonchi Abdomen: Soft and nontender. Bowel sounds are present, no mass palpable, no CVA tenderness Skin: Skin warm and dry. Normal skin color. Normal skin turgor. Extremities: No lower extremity edema. No calf tenderness Neuro: Oriented X 3. No motor deficit. No sensory deficit.No cerebellar signs , cranial nerves II-XII intact MDM - Headache MDM Narrative Medical decision making narrative: Patient occipital neuralgia previous CT scans are negative will discharge patient home on Tegretol , advised to follow up with neurologist Discharge Plan Discharge Clinical Impression: Cervico-occipital neuralgia Patient Disposition: Home, Self-Care Instructions: Cervical Radiculopathy (ED) Additional Instructions: Take medication as prescribed and follow with neurologist if not better Prescriptions: New carbamazepine [Tegretol] 200 mg tablet 200 mg PO TID Qty: 30 RF: 0 No Action (DME) lancets [FreeStyle Lancets] 28 gauge misc See Rx Instructions .ROUTE .MEDSUPPLY Qty: 100 RF: 2 (DME) FreeStyle Test Strip See Rx Instructions .ROUTE .MEDSUPPLY Qty: 100 RF: 2 aspirin 81 mg tablet,delayed release (DR/EC) 81 mg PO DAILY Qty: 90 RF: 0 (DME) Blood Pressure Monitor See Rx Instructions .Route .MEDSUPPLY Qty: 1 RF: 0 lisinopril 2.5 mg tablet 2.5 mg PO DAILY Qty: 90 RF: 3 metoprolol succinate 25 mg tablet extended release 24 hr 25 mg PO DAILY Qty: 90 RF: 3 (DME) compr.stocking,knee,long,large Misc See Rx Instructions .ROUTE .MEDSUPPLY Qty: 12 RF: 2 empagliflozin 10 mg tablet 10 mg PO DAILY@0730 Qty: 90 RF: 3 (DME) nebulizers Misc See Rx Instructions .Route Qty: 1 RF: 0 albuterol sulfate 2.5 mg /3 mL (0.083 %) solution for nebulization 1 amp inhalation Q4H PRN (Reason: Wheezing) RF: 0 acetaminophen 650 mg Tablet Extended Release 650 mg PO TID PRN (Reason: Pain) RF: 0 acetaminophen 500 mg capsule 500 mg PO Q8H PRN (Reason: pain) Qty: 30 RF: 0 tramadol 50 mg tablet 50 mg PO DAILY PRN (Reason: pain) Qty: 7 RF: 0 budesonide-formoterol 80-4.5 mcg/actuation HFA aerosol inhaler 2 puff PO BID Qty: 10.2 RF: 6 metformin 1,000 mg tablet 1,000 mg PO BID Qty: 180 RF: 3 albuterol sulfate 90 mcg/actuation HFA aerosol inhaler 2 puff PO QID PRN (Reason: wheezing) Qty: 8.5 RF: 4 amlodipine 10 mg tablet 10 mg PO DAILY Qty: 90 RF: 3 atorvastatin 40 mg tablet 40 mg PO DAILY Qty: 90 RF: 3 bupropion HCl 150 mg tablet extended release 24 hr 150 mg PO QAM RF: 0 (DME) ProChamber Spacer See Rx Instructions ea .ROUTE .MEDSUPPLY Qty: 1 RF: 0 Referrals: Inez Rowe MD [Physician] - 1 week Interventions: ED Discharge Assessment Last Done: 05/21/21 17:32 Discharge Date/Time: 05/21/21 17:32
[2021-05-21] MEDS: Butalb/Acetamin/Caff 50/325/40 TABLET 1 TAB PO (17:30)
== END 2021-05-21 17:32 | disposition home or self-care (01) ==
PROVIDERS: Emergency Provider Internal Medicine; PCP Internal Medicine
DX: M54.81 Occipital neuralgia (principal); I10 Essential (primary) hypertension; E11.9 Type 2 diabetes mellitus without complications; Z79.899 Other long term (current) drug therapy
CPT/HCPCS: 99283

== ENCOUNTER 2021-06-14 09:24 | Outpatient (REF) | payer OTHER, SELFPAY ==
[2021-06-14 11:28] LABS: Hematocrit 39.4 % (37-47); Hemoglobin 13.4 g/dl (12.0-16.0); Mean Corpuscular Hemoglobin 26.2 pg (27.0-33.0); Mean Platelet Volume 9.6 fL (9.4-12.3); Platelet Count 252 X10*3/uL (160-400); Red Blood Count 5.12 X10*6/uL (4.20-5.50); Red Cell Distribution Width 14.9 % (11.0-16.0); White Blood Count 4.1 X10*3/uL (4.8-10.8)
[2021-06-14 11:48] LABS: Appearance Urine CLEAR; Color Urine YELLOW; Glucose Urine UA NEG (NEG); Leukocyte Esterase Urine 2+ (NEG); Nitrite Urine NEG (NEG); Specific Gravity - Urine 1.015 (1.005-1.025); Urine Blood NEG (NEG); Urine Ketones NEG (NEG); Urine Protein TRACE MG/DL (NEG-TRACE)
[2021-06-14 12:13] LABS: Bacteria Urine 4+ /LPF; Mucus Urine 2+ /LPF; RBC Urine 0 /HPF (0); Squamous Epithelial Cell Urine 4+ /LPF
[2021-06-14 12:44] LABS: Alanine Aminotransferase 45 U/L (0-31); Albumin Level 4.1 g/dL (3.5-5.0); Alkaline Phosphatase 107 U/L (39-117); Anion Gap 10 (12-20); Aspartate Amino Transferase 31 U/L (5-31); Bilirubin Total 0.4 mg/dL (0.0-1.0); Blood Urea Nitrogen 7 mg/dL (9-16); Calcium 8.9 mg/dL (8.4-10.2); Carbon Dioxide 30 mmol/L (22-29); Chloride 107 mmol/L (96-108); Cholesterol 162 mg/dL; Estimated Glomerular Filt Rate > 60; Glucose Fasting 109 mg/dL (60-99); HDL Cholesterol 51 mg/dL; LDL Cholesterol Calculated 100 mg/dl; Potassium 4.5 mmol/L (3.3-5.1); Sodium 142 mmol/L (135-145); Total Protein 6.9 g/dL (6.5-8.0); Triglycerides 58 mg/dL
[2021-06-14 12:53] LABS: Creatinine Urine 251.52 mg/dL; Microalbum/Creatinine Ratio Ur 6.7 ug/mg cr
[2021-06-15 07:30] LABS: Estimated Average Glucose 146 mg/dL; Hemoglobin A1c % 6.7 %
== END 2021-06-14 09:25 | disposition home or self-care (01) ==
LOC: HO.HMGCLDS 09:24
PROVIDERS: PCP Internal Medicine; Visit Provider Internal Medicine
DX: E11.9 Type 2 diabetes mellitus without complications (principal); I10 Essential (primary) hypertension; R04.2 Hemoptysis
CPT/HCPCS: 36415; 80053; 80061; 81001; 82043; 83036; 85027

== ENCOUNTER 2021-08-06 08:51 | Outpatient (REF) | payer OTHER, SELFPAY ==
--- NOTE | ~2021-08-06 | MM_ITS ---
EXAMINATION: MM SCREENING DIGITAL BREAST TOMOSYNTHESIS, BILATERAL CLINICAL INFORMATION: Screening. Asymptomatic. The lifetime risk of breast cancer based on the Tyrer-Cuzick Model is 5.2%. COMPARISON: Mammography: June 20, 2020 TECHNIQUE: Digital breast tomosynthesis is performed in both the craniocaudal and mediolateral oblique views along with computer-aided detection (CAD). Synthesized 2D images are generated from the tomosynthesis. FINDINGS: The breasts are almost entirely fatty (ACR BI-RADS breast composition Category a). There are no significant masses, abnormal calcifications, or other abnormalities. MM/MM tomosynthesis screening BI IMPRESSION: There are no significant changes from prior study. ASSESSMENT: BI-RADS 1: Negative RECOMMENDATION: Routine annual mammography screening. This patient's information was entered into a reminder system with a target due date for their next mammogram.
== END 2021-08-06 08:52 | disposition home or self-care (01) ==
LOC: HO.MAMMO 08:51
PROVIDERS: Visit Provider Internal Medicine
DX: Z12.31 Encounter for screening mammogram for malignant neoplasm of breast (principal)
CPT/HCPCS: 77063; 77067